=== PATIENT | female | born 1980 | race Caucasian/White ===

== ENCOUNTER 2023-07-27 11:12 | Outpatient (OUT) | payer BC, SELFPAY ==
--- NOTE | 2023-07-27 11:21 | MM_ITS ---
Patient: LUIS MANUEL YO Exam Date: 07/27/2023 : 1980 Gender:F Ordering : DR Rufus Etienne . Admission #: [id number] Family : DR. DEMI ABDI M.D. Order #: [id number] CLICK HERE TO VIEW EXAM RADIOLOGY REPORT PROCEDURE: MM TOMOSYNTHESIS SCREENING BI COMPARISON: MG MAMM SCREEN 3D CEDRICK CAD, 07/21/2022. INDICATIONS: Screening Calculator Name NCI Breast Cancer Risk Assessment Tool 5 Year Breast Cancer Risk 0.60% Lifetime Breast Cancer Risk 10.10% Personal Breast Cancer No Personal Ovarian Cancer No Treatments None Family Cancers Grandmother-maternal with breast cancer at age ~65; Aunt-paternal with breast cancer at age ~55; Mother with ovarian cancer at age 56; Grandmother-maternal with cervical cancer at age ~40; Grandfather-paternal with lung cancer at age ~72. LOCATION: [facility] BREAST COMPOSITION: Scattered areas fibroglandular density. FINDINGS: DIAGNOSTIC CATEGORY 2--BENIGN FINDING: RIGHT BREAST: No significant suspicious finding. Scattered benign-appearing lymph nodes are present. No significant change has occurred. LEFT BREAST: No significant suspicious finding. Scattered benign-appearing lymph nodes are present. No significant change has occurred. RECOMMENDATIONS: ROUTINE MAMMOGRAM AND CLINICAL EVALUATION IN 12 MONTHS. PLEASE NOTE: A NORMAL MAMMOGRAM DOES NOT EXCLUDE THE POSSIBILITY OF BREAST CANCER. A CLINICALLY SUSPICIOUS PALPABLE LUMP SHOULD BE BIOPSIED. Dictated by: Cecil Pike M.D. on 07/28/2023 at 11:18 Approved by: Cecil Pike M.D. on 07/28/2023 at 11:25
== END 2023-07-27 11:13 | disposition home or self-care (01) ==
LOC: MAMMO 11:17
PROVIDERS: PCP Student in an Organized Health Care Education/Training Program; Visit Provider Obstetrics & Gynecology
DX: Z12.31 Encounter for screening mammogram for malignant neoplasm of breast (principal); Z80.3 Family history of malignant neoplasm of breast; Z80.1 Family history of malignant neoplasm of trachea, bronchus and lung; Z80.41 Family history of malignant neoplasm of ovary; Z80.49 Family history of malignant neoplasm of other genital organs
CPT/HCPCS: 77063; 77067

== ENCOUNTER 2024-07-17 19:47 | Outpatient (REF) | payer BC, SELFPAY | END 2024-07-17 19:48 | disposition home or self-care (01) | LOC: LAB 19:47 | PROVIDERS: PCP Student in an Organized Health Care Education/Training Program; Visit Provider Physician Assistant | DX: Z01.419 Encounter for gynecological examination (general) (routine) without abnormal findings (principal) | CPT/HCPCS: 87624; 88175 ==

== ENCOUNTER 2024-07-23 13:32 | Outpatient (RCR) | payer BC, SELFPAY | END 2024-08-05 23:59 | disposition home or self-care (01) | LOC: HEMC 13:32 | PROVIDERS: PCP Student in an Organized Health Care Education/Training Program; Visit Provider Internal Medicine Hematology & Oncology | DX: Z15.89 Genetic susceptibility to other disease (principal); Z15.09 Genetic susceptibility to other malignant neoplasm; Z80.3 Family history of malignant neoplasm of breast; Z80.41 Family history of malignant neoplasm of ovary | CPT/HCPCS: 36415; G0463 ==

== ENCOUNTER 2024-07-31 07:50 | Outpatient (OUT) | payer BC, SELFPAY ==
--- OUTSIDE RECORDS SUMMARY | 2024-07-31 07:54 | XMS_ITS | CCD ---
Author Organization [facility] Inform ion Partnership [facility] Care Team Providers Care Billing Collections Specialist Name Role Phone MAXIMO LEBLANC ([facility]) Referring Unavailab GEN Mason Attending Unavailable GEN CASTILLO Referring Unavailable Madyson Hinkle Primary Care Physician Sonali BACH Unavailable Stacy Arias Unavailable Unavailable Kalpana Garcia Unavailable Unavailable [facility] Primary Care Unavailable MAURISIO PHELPS Attending Unavailable MAURISIO PHELPS Consulting Unavailable MAURISIO PHELPS Admitting Unavailable KARASIK ., DR GOLDBEGR Consulting Unavailabl e KARASIK ., DR GOLDBERG Admitting Unavailabl e [facility] Primary Care Unavailable KARASIK ., DR GOLDBERG Attending Unavailabl e HOY ., DR HALE Attending Unavailable HOY ., DR HALE Consulting Unavailable HOY ., DR HAEL Admitting Unavailable [facility] Primary Care Unavailable YAROSH .JORGE Consulting Unavailable HAY ., DR MONTALVO Attending Unavailable HAY ., DR MONTALVO Admitting Unavailable [facility] Primary Care Unavailable YOANNA CASTRO Consulting Unavailable WILLIAMS ., AYAAN Admitting Unavailable WILLIAMS ., AYAAN Attending Unavailable WILLIAMS .AYAAN Consulting Unavailable KOBY KRAMER Consulting Unavailable KARASIK ., DR GOLDBERG Consulting Unavailabl e KARASIK ., DR GOLDBERG Admitting Unavailabl e [facility] Primary Care Unavailable KARASIK ., DR GOLDBERG Attending Unavailparker CASTRO, DR YOANNA Mcdaniel Consulting Unavailable Madyson Hinkle MD Primary Care Provider Madyson Hinkle MD Unavailable DO Ashlyn Cheney Primary Care Provider MD Dmitri Lilly Attending Provider Ashlyn Cheney Primary Care Unavailable Dmitri Lilly Attending Unavailable Dmitri Lilly Admitting Unavailable COCO ADAMS Attending Unavailable ARIN, MADYSON Landrum Attending Unavailable GAB SOSA Attending Unavailab COCO Orozco Attending Unavailable ARIN, MADYSON M Attending Unavailable ARIN, MADYSON M Attending Unavailable GRETCHENREX EWING Attending Unavailable Arin, Madyson M Admitting Unavailable Arin, Madyson M Attending Unavailable Arin, Madyson M Referring Unavailable America Santana Attending Unavailable Allergies Allergy Classification Reported Allergen(s) Allergy Type Date of Onset Reaction(s) Facility (7 sources) Aspirin; Translations: [ASPIRIN] Drug Allergy 2 Hives [facility] Repository (3 sources) Bee; Translations: [bee] Propensity to adverse reactions to substance [facility] (3 sources) [place]; Translations: [strawberries] Propensity to adverse reactions to substance [facility] (3 sources) Honey bee venom Propensity to adverse reactions 0 [facility] (3 sources) [place] Allergy to substance [address] [facility] (1 source) Penicillins; Translations: [penicillins] Propensity to adverse reactions (disorder) [facility] Repository Medications Current Medications Medication Drug Class(es) Dates Sig (Normalized) Sig (Original) Tylenol (2 sources) Start: 10-21-2019 Tylenol Refills(s) 0 Start Date: 10/21/19 Status: Ordered amoxicillin 875 mg / clavulanate 125 mg oral tablet (1 source) Penicillin-class Antibacterial Start: 12-30-2023 End: 01-09-2024 take 1 tablet by mouth every twelve hours Augmentin 875 mg oral tablet = 1 tab(s), Oral, q12hr, X 10 day(s), # 20 tab(s), Refills(s) 0, Pharmacy: [facility]/pharmacy #[id number], 168, cm, 12/30/23 10:51:00 EST, Height/Length Dosing, 84.9, kg, 12/30/23 10:51:00 EST, Weight Dosing Start Date: 12/30/23 Stop Date: 01/09/24 Status: Ordered benzonatate 200 mg oral capsule (1 source) Non-narcotic Antitussive Start: 12-30-2023 End: 01-09-2024 take 1 capsule by mouth three times daily benzonatate 200 mg oral capsule 200 mg = 1 cap(s), Oral, TID, X 10 day(s), # 30 cap(s), Refills(s) 0, Pharmacy: [facility]/pharmacy #[id number], 168, cm, 12/30/23 10:51:00 EST, Height/Length Dosing, 84.9, kg, 12/30/23 10:51:00 EST, Weight Dosing Start Date: 12/30/23 Stop Date: 01/09/24 Status: Ordered benzoyl peroxide 0.05 mg/mg topical gel (4 sources) Start: 12-30-2023 benzoyl peroxide Top 5% Gel 60 gram Refill(s) 0 Start Date: 12/30/23 Status: Ordered Start: 11-29-2023 benzoyl peroxi de 5 % gel Indications: Acne vulgaris Apply to face once a day, in the morning, 30 day supply 60 g 11 11/29/2023 Active busPIRone hydrochloride 15 mg oral tablet (3 sources) busPIRone (Buspa r) 15 MG tablet Take 15 mg by mouth. 0 Active Classic (1 source) Start: 015 take 1 tablet by mouth once daily Classic 1 tab(s), Oral, Daily, Refill(s) 0 Start Date: 04/25/15 Status: Ordered dextromethorphan hydrobromide 3 mg/ml / promethazine hydrochloride 1.25 mg/ml oral solution (1 source) Phenothiazine, Uncompetitive C-waotht-M-aspartate Receptor Antagonist, Sigma-1 Agonist Start: 024 take 5 mL by mouth every six hours for cough dextromethorphan-prom ethazine 15 mg-6.25 mg/5 mL Oral Syrup 5 mL 5 mL, Oral, q6hr for cough, 240 mL, Refill(s) 0, [facility]/pharmacy #[id number], 168, cm, 12/30/23 10:51:00 EST, Height/Length Dosing, 84.9, kg, 12/30/23 10:51:00 EST, Weight Dosing Start Date: 12/30/23 Status: Ordered ibuprofen 600 mg oral tablet (2 sources) Nonsteroidal Anti-inflammatory Drug Start: 020 take 1 tablet by mouth every six hours as needed for pain ibuprofen 600 mg Tab 600 mg = 1 tab(s), Oral, q6hr, PRN Pain - Mild, # 30 tab(s), Refills(s) 0, Pharmacy: [facility]/pharmacy #[id number], 165, cm, 05/13/20 16:21:00 EDT, Height/Length Measured, 90.9, kg, 05/13/20 16:21:00 EDT, Weight Measured Start Date: 05/15/20 Status: Ordered levonorgestrel 0.638756 mg/hr intrauterine system (6 sources) Progestin, Progestin-containing Intrauterine Device End: 024 Levonorgestrel (Mirena, 52 MG,) 20 MCG/DAY intrauterine device Mirena 0 12/20/2023 Discontinued levothyroxine sodium 0.112 mg oral tablet (5 sources) l-Thyroxine Start: 023 take 1 tablet by mouth once daily in the morning levothyroxine (Synthroid, Levoxyl) 112 MCG tablet Indications: Acquired hypothyroidism (CMS/HCC) TAKE 1 TABLET BY MOUTH EVERY DAY IN THE MORNING ON AN EMPTY STOMACH 90 tablet 3 09/01/2023 Active Start: 05-15-2020 take 1 tablet by nadir th once daily levothyroxine 125 mcg (0.125 mg) Tab 125 microgram = 1 tab(s), Oral, Daily, # 30 tab(s), Refills(s) 2, Pharmacy: [facility]/pharmacy #[id number], 165, cm, 05/13/20 16:21:00 EDT, Height/Length Measured, 90.9, kg, 05/13/20 16:21:00 EDT, Weight Measured Start Date: 05/15/20 Status: Ordered predniSONE 20 mg oral tablet (1 source) Start: 12-30-2023 take 2 tablets by mouth once daily in the morning, then take 1 tablet by mouth once daily in the morning predniSONE 20 mg Tab See Instructions, 2 po QAM x5 days, then 1 po QAM x5 days, # 15 tab(s), Refills(s) 0, Pharmacy: [facility]/pharmacy #[id number], 168, cm, 12/30/23 10:51:00 EST, Height/Length Dosing, 84.9, kg, 12/30/23 10:51:00 EST, Weight Dosing Start Date: 12/30/23 Status: Ordered spironolactone 100 mg oral tablet (4 sources) Aldosterone Antagonist Start: 12-30-2023 spironolactone 100 mg Tab Refills(s) 0 Start Date: 12/30/23 Status: Ordered Start: 11-29-2023 take 1 tablet by nadir once daily spironolactone (Aldactone) 100 MG tablet Indications: Acne vulgaris Take 1 tablet, by mouth, once daily, 30 days 30 tablet 3 11/29/2023 Active 24 hr venlafaxine 37.5 mg extended release oral capsule (5 sources) Serotonin and Norepinephrine Reuptake Inhibitor Start: 07-31-2023 End: 07-30-2024 take 1 capsule by mouth every twenty-four hours in the morning venlafaxine XR (Effexor XR) 37.5 MG 24 hr capsule Indications: Anxiety Take 1 capsule (37.5 mg) by mouth in the morning. Do not crush or chew. . 90 capsule 3 07/31/2023 07/30/2024 Active Start: 05-15-2020 take 1 capsule by mo [facility] once daily venlafaxine 75 mg Cap-ER 75 mg = 1 cap(s), Oral, Daily, # 30 cap(s), Refills(s) 1, Pharmacy: [facility]/pharmacy #[id number], 165, cm, 05/13/20 16:21:00 EDT, Height/Length Measured, 90.9, kg, 05/13/20 16:21:00 EDT, Weight Measured Start Date: 05/15/20 Status: Ordered Problems Active Problems Problem Classification Problem Date Documented Date Episodic/Chronic Anxiety disorders (5 sources) Anxiety; Translations: [Anxiety disorder, unspecified] Onset: 04-19-2023 04-25-2015 Chronic Deficiency and other anemia (2 sources) Anemia 05-13-2020 Episodic Esophageal disorders (5 sources) Gastroesophageal reflux disease; Translations: [Gastro-esophageal reflux disease without esophagitis] Onset: 04-19-2023 11-18-2019 Chronic Headache; including migraine (4 sources) Migraine 07-18-2019 Chronic Lymphadenitis (2 sources) Lymphadenopathy; Translations: [Generalized enlarged lymph nodes] 12-20-2023 Episodic Malaise and fatigue (2 sources) Fatigue; Translations: [Chronic fatigue, unspecified] 12-20-2023 Chronic Malposition; malpresentation (2 sources) Complete breech presentation 05-11-2020 Episodic Mood disorders (10 sources) Depression; Translations: [Depressive disorder] Onset: 04-19-2023 04-25-2015 Chronic Other connective tissue disease (1 source) Myalgia, unspecified site; Translations: [Myalgia, unspecified site] Onset: 01-22-2024 Episodic Other nutritional; endocrine; and metabolic disorders (2 sources) Body mass index 30+ - obesity; Translations: [Body mass index (BMI) 31.0-31.9, adult] 12-20-2023 Chronic Other nutritional; endocrine; and metabolic disorders (3 sources) Obese class I; Translations: [Obesity, unspecified] Onset: 12-30-2023 12-20-2023 Chronic Other screening for suspected conditions (not mental disorders or infectious disease) (10 sources) Bacteria present; Translations: [Encounter for screening for malignant neoplasm of cervix] Onset: 07-21-2022 05-11-2020 Episodic Other skin disorders (2 sources) Eruption; Translations: [Rash and other nonspecific skin eruption] 12-20-2023 Episodic Other upper respiratory disease (3 sources) Seasonal allergy; Translations: [Other seasonal allergic rhinitis] Onset: 04-19-2023 04-19-2023 Chronic Other upper respiratory infections (1 source) Chronic maxillary sinusitis; Translations: [Chronic maxillary sinusitis] Onset: 12-30-2023 Chronic Other upper respiratory infections (1 source) Acute upper respiratory infection; Translations: [Acute upper respiratory infection, unspecified] Onset: 12-30-2023 Episodic Thyroid disorders (7 sources) Hypothyroidism; Translations: [Acquired hypothyroidism] Onset: 12-29-2011 10-21-2019 Chronic Unclassified (1 source) Age mother conceived over 35( Confirmed ) 05-13-2020 Unclassified (2 sources) Streptococcus agalactiae (organism) 05-13-2020 Unclassified (3 sources) CONTACT W/AND (SUSP) EXPOS COVID-19; Translations: [CONTACT W/AND (SUSP) EXPOS COVID-19] Onset: 04-11-2022 Unclassified (1 source) Age mother conceived over 35 05-13-2020 Viral infection (5 sources) Singh-Hartley virus disease; Translations: [Infectious mononucleosis, unspecified without complication] Onset: 04-19-2023 04-19-2023 Episodic Viral infection (1 source) COVID-19; Translations: [COVID-19] Onset: 03-15-2023 Past or Other Problems Problem Classification Problem Date Documented Da te Episodic/Chronic Appendicitis and other appendiceal conditions (3 sources) Chronic appendicitis; Translations: [Other appendicitis] Onset: 04-19-2023 04-19-2023 Episodic Attention-deficit, conduct, and disruptive behavior disorders (3 sources) Obsessive behavior; Translations: [Obsessive-compulsi ve behavior] Onset: 04-19-2023 04-19-2023 Episodic E Codes: Natural/environment (1 source) Overexertion from prolonged static or awkward postures, initial encounter; Translations: [OVEREXERT PROLNG STAT/AWK PST INIT] Onset: 05-06-2022 Episodic Nausea and vomiting (4 sources) Nausea with vomiting, unspecified; Translations: [NAUSEA WITH VOMITING UNSPECIFIED] Onset: 04-08-2022 Episodic Other aftercare (1 source) Other mcfp (current) drug therapy; Translations: [OTH INDUSTRIAL ECONOMIST CURRENT DRUG THERAPY] Onset: 04-11-2022 Episodic Other gastrointestinal disorders (3 sources) Splenomegaly; Translations: [Splenomegaly, not elsewhere classified] Onset: 04-19-2023 04-19-2023 Episodic Other lower respiratory disease (1 source) Other nonspecific abnormal finding of lung field; Translations: [Other nonspecific abnormal finding of lung field] Onset: 12-05-2017 Episodic Other lower respiratory disease (3 sources) Multiple nodules of lung; Translations: [Other nonspecific abnormal finding of lung field] Onset: 12-05-2017 04-19-2023 Episodic Other non-traumatic joint disorders (4 sources) Pain in left ankle and joints of left foot; Translations: [PAIN IN LEFT ANKLE] Onset: 05-05-2022 Episodic Other skin disorders (3 sources) Acne; Translations: [Other acne] Onset: 04-19-2023 04-19-2023 Episodic Residual codes; unclassified (1 source) Family history of malignant neoplasm of breast; Translations: [FAMILY HX MALIG NEOPLASM OF BREAST] Onset: 07-25-2022 Episodic Residual codes; unclassified (1 source) Family history of malignant neoplasm of ovary; Translations: [FAM HX MALIGNANT NEOPLASM OVARY] Onset: 07-25-2022 Episodic Residual codes; unclassified (1 source) Family history of malignant neoplasm of trachea, bronchus and lung; Translations: [FAM HX MALIG NEOPLSM TRACH BRON LNG] Onset: 07-25-2022 Episodic Residual codes; unclassified (1 source) Family history of malignant neoplasm of other organs or systems; Translations: [FAM HX MALIG NEOPLASM OTH ORGN/SYS] Onset: 07-25-2022 Episodic Screening and history of mental health and substance abuse codes (1 source) Personal history of nicotine dependence; Translations: [PERSONAL HISTORY OF NICOTINE DEPEND] Onset: 05-06-2022 Episodic Sprains and strains (1 source) Sprain of unspecified ligament of left ankle, initial encounter; Translations: [SPRAIN UNS LIGAMENT LT ANKLE INIT] Onset: 05-06-2022 Episodic Unclassified (6 sources) Onset: 01-30-2007 Resolved: 05-13-2020 09-30-2015 Unclassified (1 source) CONTACT W/AND (SUSP) EXPOS COVID-19; Translations: [CONTACT W/AND (SUSP) EXPOS COVID-19] Onset: 03-09-2023 Results Test Name Value Interpretation Reference Range Facility US Extremity Non-Vascular Li mited Lefton 2024 US Extremity Non-Vascular Limited Left Exam Date/Time: 07/19/2024 16:23 EDT Reason for Exam: R19.09 Report IMPRESSION: APPROXIMATELY 2.5 CM PROBABLE SUPERFICIAL LEFT GROIN LIPOMA. EXAM: US Extremity Non-Vascular Limited Left DATE: 07/19/2024 4:09 PM CLINICAL HISTORY: R19.09. COMPARISON: CT abdomen and pelvis 10/22/2017. TECHNIQUE: Directed ultrasound of the left groin was performed and a palpable area of concern, with a regional survey. FINDINGS: An ovoid well defined wider than tall area just deep to the skin surface essentially isoechoic to subcutaneous fat measuring approximately 2.5 x 1.7 x 0.7 cm is probably a lipoma or possibly area of mild fat necrosis. There is no organized fluid collection, significant inflammation, lymphadenopathy, discrete hernia or other findings of concern identified. Ordering Provider: Madyson Hinkle FINAL REPORT Dictated: 2024 7:45 am Benjamin Ordonez MD Signed (Electronic Signature): 2024 7:45 am Signed by: Benjamin Ordonez MD Transcribed by: SAMMIE Technologist: DALIA Elliott [facility] HARINDER Antinuclear Antibodieson 01-22-2024 Antinuclear Abs, IFA Positive Critically abnormal . [facility] Comment on above: Result Comment: Nega tive <1:80 Borderline 1:80 Positive >1:80 Performed By: #### C 3, HARINDER, C4, CH50 #### [facility] , #### CK, ADDONUAPLUS #### [facility] [address] [place] [address] Note 1 Normal . [facility] Comment on above: Result Comment: Pat rao Potential Disease Association Homogeneous Systemic Lupus Erythematosus, Drug Induced Systemic Lupus Erythematosus, Chronic Autoimmune hepatitis, Juvenile Idiopathic Arthritis Speckled Sjogren Syndrome, Systemic Lupus Erythematosus, Subacute Cutaneous Lupus, Lupus, Congenital Heart Block, Mixed Connective Tissue Disease, Scleroderma-diffuse, Scleroderma-Autoimmune Myositis Overlap Syndrome, Systemic Lupus Rnvdjfxdncirc-Txgoggtyqww-Ffyoxcjofq Myositis Overlap Syndrome, Systemic Autoimmune Rheumatic Disease, Undifferentiated Connective Tissue Disease Nucleolar Systemic Sclerosis, Scleroderma-Autoimmune Myositis Overlap Syndrome, Sjogren Syndrome, Raynaud phenomenon, Pulmonary Arterial Hypertension, Systemic Autoimmune Rheumatic Disease, Cancer Centromere Scleroderma-CREST, Limited Cutaneous SSc, Raynaud's Phenomenon, Primary Biliary Cholangitis Nuclear Dot Primary Biliary Cholangitis Nuclear Primary Biliary Cholangitis, Autoimmune Membrane Hepatitis/Liver disease, Systemic Autoimmune Rheumatic Disease, Autoimmune Cytopenias, Linear Scleroderma, Antiphospholipid Syndrome Performed at: [facility] [id number] Sustainability Specialist: Tyler Linton PhD, Phone: [phone] Performed By: #### C 3, HARINDER, C4, CH50 #### [facility] , #### CK, ADDONUAPLUS #### [address] Speckled Pattern 1:1280 High . [facility] Comment on above: Result Comment: Dens e Fine Speckled pattern is noted. This pattern suggests the presence of DFS70 antibody which has a low prevalence in systemic autoimmune rheumatic diseases. ICAP nomenclature: AC-2,4,5,29 Performed By: #### C 3, HARINDER, C4, CH50 #### [facility] , #### CK, ADDONUAPLUS #### [facility] [address] [place] [address] Automated erythrocytes count in urine sediment (number/area)Ordered By: Dmitri Lilly on 01-22-2024 RBC Auto (Urine sed) [#/Area] 1-2 [HPF] 0-4 [facility] Automated leukocytes count i n urine sediment (number/area)Ordered By: Dmitri Lilly on 01-22-2024 WBC Auto (Urine sed) [#/Area] 3-4 [HPF] 0-4 [facility] Bilirubin Test strip Ql (U)O rdered By: Dmitri Lilly on 01-22-2024 Bilirubin Ql (U) Negative Negative [facility] Color Auto (U)Ordered By: Asya Lilly on 01-22-2024 Color (U) Yellow Yellow [facility] Complement C3on 01-22-2024 Complement C3 163 mg/dL Normal 82-167 [facility] Comment on above: Result Comment: Perf ormed at: - [facility] [place] [address] Sustainability Specialist: Tyler Linton PhD, Phone: [phone] Performed By: #### C 3, HARINDER, C4, CH50 #### [facility] , #### CK, ADDONUAPLUS #### [place] [address] [place] Complement C4on 01-22-2024 Complement C4 35 mg/dL Normal 12-38 [facility] Comment on above: Result Comment: PERF ORMED BY: [place] [id number] PATHOLOGIST UNIFORM ROOM ATTENDANT ENID BREWER M.D. Performed By: #### C 3, HARINDER, C4, CH50 #### [facility] , #### CK, ADDONUAPLUS #### [place] [address] [place] Complement Total (CH50)on Complement Total (CH50) >60 Normal >41 [facility] Comment on above: Result Comment: Age Male Female 1 - 30 days Not Estab. Not Estab. 31 days - 6 months >32 >20 7 months - 17 years >39 >39 >17 years >41 >41 NOTE: The adult ( >17 years ) reference interval range is used to flag abnormals on this report. If the patient is 17 years old or younger, use the table above to determine out of range values. Performed at: [facility] [address] [id number] Sustainability Specialist: Tyler Linton PhD, Phone: [phone] PERFORMED BY: [place] [id number] PATHOLOGIST UNIFORM ROOM ATTENDANT ENID BREWER M.D. Performed By: #### C 3, HARINDER, C4, CH50 #### [facility] , #### CK, ADDONUAPLUS #### [address] Creatine Kinaseon 01-22-2024 CK [Catalytic activity/Vol] 45 U/L Normal [facility] Comment on above: Result Comment: PERF ORMED BY: [place] [id number] PATHOLOGIST UNIFORM ROOM ATTENDANT ENID BREWER M.D. Performed By: #### C 3, HARINDER, C4, CH50 #### [facility] , #### CK, ADDONUAPLUS #### [address] Creatine kinase [Enzymatic a ctivity/volume] in Serum or PlasmaOrdered By: Dmitri Lilly on 01-22-2024 CK [Catalytic activity/Vol] 45 U/L [facility] Dipstick and Microscopicon 0 01-22-2024 Appearance (U) Clear Normal Clear [facility] Comment on above: Order Comment: Name Collection Type:: Clean-Voided Midstream Performed By: #### C 3, HARINDER, C4, CH50 #### [facility] , #### CK, ADDONUAPLUS #### [facility] [address] [place] [address] [place] Bacteria,Urine Rare High None Seen [facility] Comment on above: Order Comment: Name Collection Type:: Clean-Voided Midstream Performed By: #### C 3, HARINDER, C4, CH50 #### [facility] , #### CK, ADDONUAPLUS #### [facility] [address] [place] [address] Bilirubin,Urine Negative Normal Negative [facility] Comment on above: Order Comment: Name Collection Type:: Clean-Voided Midstream Performed By: #### C 3, HARINDER, C4, CH50 #### [facility] , #### CK, ADDONUAPLUS #### [facility] [address] [place] [address] Color (U) Yellow Normal Yellow [facility] Comment on above: Order Comment: Name Collection Type:: Clean-Voided Midstream Performed By: #### C 3, HARINDER, C4, CH50 #### [facility] , #### CK, ADDONUAPLUS #### [facility] [address] [place] [address] Glucose Ql (U) Normal Normal Normal [facility] Comment on above: Order Comment: Name Collection Type:: Clean-Voided Midstream Performed By: #### C 3, HARINDER, C4, CH50 #### [facility] , #### CK, ADDONUAPLUS #### [facility] [address] [place] [address] [place] Hyaline Casts,Urine None Seen Normal 0-8 [facility] Comment on above: Order Comment: Name Collection Type:: Clean-Voided Midstream Result Comment: PERF ORMED BY: [place] [id number] PATHOLOGIST UNIFORM ROOM ATTENDANT ENID BREWER M.D. Performed By: #### C 3, HARINDER, C4, CH50 #### [facility] , #### CK, ADDONUAPLUS #### [address] Ketones Ql (U) Negative Normal Negative [facility] Comment on above: Order Comment: Name Collection Type:: Clean-Voided Midstream Performed By: #### C 3, HARINDER, C4, CH50 #### [facility] , #### CK, ADDONUAPLUS #### [address] Leukocyte esterase Test strip Ql (U) 2+ High Negative [facility] Comment on above: Order Comment: Name Collection Type:: Clean-Voided Midstream Performed By: #### C 3, HARINDER, C4, CH50 #### [facility] , #### CK, ADDONUAPLUS #### [address] Nitrite,Urine Negative Normal Negative [facility] Comment on above: Order Comment: Name Collection Type:: Clean-Voided Midstream Performed By: #### C 3, HARINDER, C4, CH50 #### [facility] , #### CK, ADDONUAPLUS #### [address] Occult Blood,Urine Negative Normal Negative [facility] Comment on above: Order Comment: Name Collection Type:: Clean-Voided Midstream Performed By: #### C 3, HARINDER, C4, CH50 #### [facility] , #### CK, ADDONUAPLUS #### [address] pH (U) 6.5 [pH] Normal 5.0-9.0 [facility] Comment on above: Order Comment: Name Collection Type:: Clean-Voided Midstream Performed By: #### C 3, HARINDER, C4, CH50 #### [facility] , #### CK, ADDONUAPLUS #### [address] Protein,Urine Negative Normal Negative [facility] Comment on above: Order Comment: Name Collection Type:: Clean-Voided Midstream Performed By: #### C 3, HARINDER, C4, CH50 #### [facility] , #### CK, ADDONUAPLUS #### [address] [address] RBC,Urine 1-2 Normal 0-4 [facility] Comment on above: Order Comment: Name Collection Type:: Clean-Voided Midstream Performed By: #### C 3, HARINDER, C4, CH50 #### [facility] , #### CK, ADDONUAPLUS #### [address] Specificy [place],Urine 1.008 Normal 1.001-1.030 [facility] Comment on above: Order Comment: Name Collection Type:: Clean-Voided Midstream Performed By: #### C 3, HARINDER, C4, CH50 #### [facility] , #### CK, ADDONUAPLUS #### [address] Squamous Epithelial Cell,Urine 3-4 High 0-2 [facility] Comment on above: Order Comment: Name Collection Type:: Clean-Voided Midstream Performed By: #### C 3, HARINDER, C4, CH50 #### [facility] , #### CK, ADDONUAPLUS #### [address] Urobilinogen,Urine Normal Normal Normal [facility] Comment on above: Order Comment: Name Collection Type:: Clean-Voided Midstream Performed By: #### C 3, HARINDER, C4, CH50 #### [facility] , #### CK, ADDONUAPLUS #### [place] [address] [place] WBC,Urine 3-4 Normal 0-4 [facility] Comment on above: Order Comment: Name Collection Type:: Clean-Voided Midstream Performed By: #### C 3, HARINDER, C4, CH50 #### [facility] , #### CK, ADDONUAPLUS #### [address] Ketones Auto test strip (U) [Mass/Vol]Ordered By: Dmitri Lilly on 01-22-2024 Ketones (U) [Mass/Vol] Negative Negative [facility] Laboratory - UrinalysisOrder ed By: Dmitri Lilly on 01-22-2024 Hyaline casts LM Ql (Urine sed) None seen [LPF] 0-8 [facility] Nitrite Test strip Ql (U)Ord ered By: Dmitri Lilly on 01-22-2024 Nitrite Ql (U) Negative Negative [facility] Protein Auto test strip (U) [Mass/Vol]Ordered By: Dmitri Lilly on 01-22-2024 Protein (U) [Mass/Vol] Negative Negative [facility] Specific gravity Auto test s trip (U) [Rel density]Ordered By: Dmitri Lilly on 01-22-2024 Specific gravity (U) [Rel density] 1.008 1.001-1.030 [facility] Squamous epithelial cells de tection in urine sediment by light microscopyOrdered By: Dmitri Lilly on 01-22-2024 Epithelial cells.squamous LM Ql (Urine sed) 3-4 [HPF] 0-2 [facility] Urine bacteria detection by automated methodOrdered By: Dmitri Lilly on 01-22-2024 Bacteria Auto Ql (U) Rare None Seen [facility] Urine clarity by refractomet ry automatedOrdered By: Dmitri Lilly on 01-22-2024 Clarity Refractometry automated (U) Clear Clear [facility] Urine glucose measurement by automated test strip (mass/volume)Ordered By: Dmitri Lilly on 01-22-2024 Glucose Auto test strip (U) [Mass/Vol] Normal mg/dL Normal [facility] Urine hemoglobin detection b y automated test stripOrdered By: Dmitri Lilly on 01-22-2024 Hemoglobin Auto test strip Ql (U) Negative Negative [facility] Urine leukocyte esterase det ection by automated test stripOrdered By: Dmitri Lilly on 01-22-2024 Leukocyte esterase Auto test strip Ql (U) 2+ Negative [facility] Urobilinogen Auto test strip (U) [Mass/Vol]Ordered By: Dmitri Lilly on 01-22-2024 Urobilinogen (U) [Mass/Vol] Normal mg/dL Normal [facility] pH Auto test strip (U)Ordere d By: Dmitri Lilly on 01-22-2024 pH (U) 6.5 [pH] 5.0-9.0 [facility] Provider Letteron 01-06-2024 Provider Letter January 06, 2024 SANDI [place] [address] : 1980 To Whom It May Concern, Please excuse above patient from work. Date of Illness: From: _12/30/2023 To: _12/31/2023 May Return to Work On:01/01/2024 Sincerely, [facility] [address] [place] [address], [place] [address] 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 Her focal complaint today is pain over the right maxillary sinus and right frontal sinus. She is tender to palpation over those areas and states that her symptoms are worsening. She has been running low-grade fevers intermittently over the past 10 days. She complains of the dry cough. She complains of a headache but then points to the area of the right maxillary and right frontal sinus. She has no shortness of breath or tightness with breathing. She has no GI symptoms with her illness. Review of Systems PHQ Score Initial Depression Screen Score: 0 SCORE Constitutional: Complains of intermittent low-grade fevers, severe fatigue Eyes: Denies visual change or eye discharge Head/Ears/Nose/Throa t: See HPI above Respiratory: Denies shortness of breath. Does complain of a dry cough Cardiovascular: Denies chest pain GI/ : Denies abdominal pain, n/v. Musculoskeletal: Denies Joint pain, Denies muscle pain Neurologic: Denies any generalized headache, Denies focal neuro symptoms Physical Exam Vitals & Measurements T: 36.8 ?C(Oral) HR: 99(Peripheral) BP: 116/78 SpO2: 97% HT: 66 in HT: 168 cm WT: 84.9 kg WT: 186.78 lb BMI: 30.08 Primary assessment: Airway patent. Respirations unlabored. Normal respiratory effort Constitutional: Vital signs reviewed. Patient appears ill but does not appear toxic.. No distress. Psychiatric: Mental status appropriate. Normal affect Skin: Warm and dry. HENT: Normal TMs. Posterior pharynx clear. Negative cervical lymphadenopathy. She has significant tenderness to palpation over the right maxillary sinus and percussion over the right frontal sinus. She withdraws due to the discomfort. Thorax/ Respiratory: Respiratory effort non-labored. BBS clear ant/post. No wheezes, rales or rhonchi. Musculoskeletal: Neck supple Neurologic: Alert and oriented Assessment/Plan 1. Right maxillary sinusitis (J32.0: Chronic maxillary sinusitis) Ordered: amoxicillin-clavulan ate, = 1 tab(s), Oral, q12hr, X 10 day(s), # 20 tab(s), Refills(s) 0, Pharmacy: [facility]/pharmacy #[id number], 168, cm, 12/30/23 10:51:00 EST, Height/Length Dosing, 84.9, kg, 12/30/23 10:51:00 EST, Weight Dosing benzonatate, 200 mg = 1 cap(s), Oral, TID, X 10 day(s), # 30 cap(s), Refills(s) 0, Pharmacy: [facility]/pharmacy #[id number], 168, cm, 12/30/23 10:51:00 EST, Height/Length Dosing, 84.9, kg, 12/30/23 10:51:00 EST, Weight Dosing dextromethorphan-pro methazine, 5 mL, Oral, q6hr for cough, 240 mL, Refill(s) 0, [facility]/pharmacy #[id number], 168, cm, 12/30/23 10:51:00 EST, Height/Length Dosing, 84.9, kg, 12/30/23 10:51:00 EST, Weight Dosing predniSONE, See Instructions, 2 po QAM x5 days, then 1 po QAM x5 days, # 15 tab(s), Refills(s) 0, Pharmacy: [facility]/pharmacy #[id number], 168, cm, 12/30/23 10:51:00 EST, Height/Length Dosing, 84.9, kg, 12/30/23 10:51:00 EST, Weight Dosing 2. Viral URI with cough (J06.9: Acute upper respiratory infection, unspecified) Ordered: amoxicillin-clavulan ate, = 1 tab(s), Oral, q12hr, X 10 day(s), # 20 tab(s), Refills(s) 0, [id number] 168, cm, 12/30/23 10:51:00 EST, Height/Length Dosing, 84.9, kg, 12/30/23 10:51:00 EST, Weight Dosing benzonatate, 200 mg = 1 cap(s), Oral, TID, X 10 day(s), # 30 cap(s), Refills(s) 0, Pharmacy: [facility]/pharmacy #[id number], 168, cm, 12/30/23 10:51:00 EST, Height/Length Dosing, 84.9, kg, 12/30/23 10:51:00 EST, Weight Dosing dextromethorphan-pro methazine, 5 mL, Oral, q6hr for cough, 240 mL, Refill(s) 0, [facility]/pharmacy #[id number], 168, cm, 12/30/23 10:51:00 EST, Height/Length Dosing, 84.9, kg, 12/30/23 10:51:00 EST, Weight Dosing predniSONE, See Instructions, 2 po QAM x5 days, then 1 po QAM x5 days, # 15 tab(s), Refills(s) 0, Pharmacy: [facility]/pharmacy #[id number], 168, cm, 12/30/23 10:51:00 EST, Height/Length Dosing, 84.9, kg, 12/30/23 10:51:00 EST, Weight Dosing 3. BMI 30.0-30.9,adult (Z68.30: Body mass index [BMI] 30.0-30.9, adult) Ordered: amoxicillin-clavulan ate, = 1 tab(s), Oral, q12hr, X 10 day(s), # 20 tab(s), Refills(s) 0, [id number] 168, cm, 12/30/23 10:51:00 EST, Height/Length Dosing, 84.9, kg, 12/30/23 10:51:00 EST, Weight Dosing benzonatate, 200 mg = 1 cap(s), Oral, TID, X 10 day(s), # 30 cap(s), Refills(s) 0, [id number], 168, cm, 12/30/23 10:51:00 EST, Height/Length Dosing, 84.9, kg, 12/30/23 10:51:00 EST, Weight Dosing dextromethorphan-pro methazine, 5 mL, Oral, q6hr for cough, 240 mL, Refill(s) 0, [id number] 168, cm, 12/08 (more content not included)... Normal [facility] Comment on above: Result Comment: Elec tronically Signed By: Tiburcio ALANIZ, Sarbjit W.\.br\Date and Time Signed: 12/30/23 11:30 EST Patient Letter FTon 2023 Patient Letter [facility] [address], [place] [address] December 30, 2023 SANDI YO [address] [place] [address] : 1980 Please excuse SANDI YO from work . Date and/or Time of Absence: From: 12/30/23 To: 12/31/23 May return to work on: 01/01/2024 as long as she is free of fevers. Restrictions: None Comments: Please excuse due to an acute illness. Provider Signature: Sarbjit Dey PA-C Physician Tax Attorney [address] [place] [address] [facility] Covid-19 PCR (CVDTBH)on SARS-CoV-2 (COVID-19) RNA LEWIS+probe Ql (Unsp spec) Detected Abnormal NOT DETECTED [facility] Comment on above: Result Comment: This test is not yet approved or cleared by the [place] FDA. When there are no FDA-approved or cleared tests available, and other criteria are met, FDA can make tests available under an emergency access mechanism called an Emergency Use Authorization (EUA). The EUA for this test is supported by the [place] of Health and Human Service's declaration that circumstances exist to justify the emergency use of in vitro diagnostics for the detection and/or diagnosis of the virus that causes COVID-19. This EUA will remain in effect for the duration of the COVID-19 declaration justifying emergency of IVDs, unless it is terminated or revoked by the FDA (after which the test may no longer be used). Performed By: #### C VDTB #### [facility] [address] [place] [address] Dr. Jose Luis Padgett PAP ACOG PANEL 2: 30 to 65on 02-25-2023 . . Normal [facility] Comment on above: Result Comment: Perf ormed at: WB Performed By: #### [id number] #### [facility] [address] [place] [address] Dr. Jose Luis Padgett Age Gdln ACOG Testing -67 Normal [facility] Comment on above: Performed By: #### [id number] #### [facility] [address] [place] [address] Dr. Jose Luis Padgett DIAGNOSIS: Comment Normal [facility] Comment on above: Result Comment: NEGA TIVE FOR INTRAEPITHELIAL LESION OR MALIGNANCY. Performed at: WB Performed By: #### [id number] #### [facility] [address] [place], [place] [id number] Dr. Jose Luis Padgett HPV Aptima Negative Normal Negative [facility] Comment on above: Result Comment: This nucleic acid amplification test detects fourteen high-risk HPV types (16,18,31,33,35,39,45,51,52,56,58,59,66,68) without differentiation. Performed at: =G Performed By: #### [id number] #### [facility] [address] [place] [address] Dr. Jose Luis Padgett HPV Genotype Reflex Comment Normal [facility] Comment on above: Result Comment: Crit eria not met, HPV Genotype not performed. Performed at: WB Performed By: #### [id number] #### [facility] [address] [place] [address] Dr. Jose Luis Padgett Methodology: Comment Normal [facility] Comment on above: Result Comment: This liquid based ThinPrep(R) pap test was screened with the use of an image guided system. Performed at: WB Performed By: #### [id number] #### [facility] [address] [place] [address] Dr. Jose Luis Padgett Note: Comment Normal [facility] Comment on above: Result Comment: The Pap smear is a screening test designed to aid in the detection of premalignant and malignant conditions of the uterine cervix. It is not a diagnostic procedure and should not be used as the sole means of detecting cervical cancer. Both false-positive and false-negative reports do occur. . Performed at: WB Performed By: #### [id number] #### [facility] [address] [place] [address] Dr. Jose Luis Padgett Performed by: Comment Normal [facility] Comment on above: Result Comment: Marilynn Wolf, Is Project Manager (ASCP) Performed at: WB Performed By: #### [id number] #### [facility] [address] [place] [address] Dr. Jose Luis Padgett Specimen adequacy: Comment Normal [facility] Comment on above: Result Comment: Sati sfactory for evaluation. Endocervical and/or squamous metaplastic cells (endocervical component) are present. Performed at: WB Performed By: #### [id number] #### [facility] [address] [address] [address] Jose Luis Padgett CHEMISTRYOrdered By: SYSTEM SYSTEM on 08-05-2022 Albumin [Mass/Vol] 4.0 g/dL Normal 3.3 - 5.0 gm/dL [facility] Albumin/Globulin [Mass ratio] 1.4 {ratio} Normal 1.1 - 2.2 [facility] ALP [Catalytic activity/Vol] 76 [iU]/d Normal 21 - 98 Int._Unit/L [facility] ALT No additional P-5'-P [Catalytic activity/Vol] 24 [iU]/d Normal 6 - 46 Int._Unit/L [facility] Anion gap [Moles/Vol] 13 mmol/L Normal 6 - 16 mEq/L [facility] AST [Catalytic activity/Vol] 18 [iU]/d Normal 5 - 43 Int._Unit/L [facility] Bilirubin [Mass/Vol] 0.6 mg/dL Normal 0.0 - 1 .1 mg/dL [facility] Calcium [Mass/Vol] 9.0 mg/dL Normal 8.9 - 11. 1 mg/dL [facility] Chloride [Moles/Vol] 105 mmol/L Normal 101 - 1 11 mmol/L [facility] Cholesterol [Mass/Vol] 165 mg/dL Normal 120 - 200 mg/dL [facility] Cholesterol in HDL [Mass/Vol] 48 mg/dL Invalid Interpretation Code [facility] Cholesterol in LDL [Mass/Vol] 106 mg/dL Normal <=129mg/dL [facility] Cholesterol in VLDL [Mass/Vol] 16 mg/dL Normal 7 - 40 mg/dL [facility] CO2 [Moles/Vol] 24 mmol/L Normal 21 - 31 mmol/L [facility] Creatinine [Mass/Vol] 0.7 mg/dL Normal 0.5 - 1.3 mg/dL [facility] GFR/1.73 sq M.predicted among blacks MDRD (S/P/Bld) [Vol rate/Area] mL/min/1.73 m2 Normal >=59mL/min/1. 73 m2 [facility] Chem S GFR/1.73 sq M.predicted among non-blacks MDRD (S/P/Bld) [Vol rate/Area] mL/min/1.73 m2 Normal >=59mL/min/1. 73 m2 [facility] Chem S Globulin (S) [Mass/Vol] 2.9 g/dL Normal 1.4 - 4.0 gm/dL [facility] Glucose [Mass/Vol] 95 mg/dL Normal 55 - 199 mg/dL [facility] Potassium [Moles/Vol] 3.8 mmol/L Normal 3.5 - 5.3 mmol/L [facility] Protein [Mass/Vol] 6.9 g/dL Normal 6.0 - 7.8 gm/dL [facility] Sodium [Moles/Vol] 138 mmol/L Normal 135 - 145 mmol/L [facility] Triglyceride [Mass/Vol] 80 mg/dL Normal <=149mg/dL [facility] TSH Qn 0.32 m[IU]/L Low 0.34 - 5.60 mcIU/mL [facility] Urea nitrogen [Mass/Vol] 9 mg/dL Normal 5 - 21 mg/dL [facility] Urea nitrogen/Creatinine [Mass ratio] 13 mg/mg Normal 10 - 20 [facility] CHEMISTRYOrdered By: Latesha Aldana on 08-05-2022 HbA1c (Bld) [Mass fraction] 5.3 % Normal <=5.9% [facility] HEMATOLOGYOrdered By: Bridgette Barrera on 08-05-2022 Erythrocyte distribution width (RBC) [Ratio] 12.5 % Normal 10.9 - 14.2 % [facility] Hematocrit (Bld) [Volume fraction] 40.3 % Normal 34.0 - 46.0 % [facility] Hemoglobin (Bld) [Mass/Vol] 13.5 g/dL Normal 12.0 - 16.0 gm/dL [facility] MCH (RBC) [Entitic mass] 29.5 pg Normal 27.0 - 34.0 pg [facility] MCHC (RBC) [Mass/Vol] 33.6 g/dL Normal 31.4 - 36.0 gm/dL [facility] MCV (RBC) [Entitic vol] 87.8 fL Normal 80.0 - 100.0 fL [facility] Platelet mean volume (Bld) [Entitic vol] 7.6 fL Normal 6.4 - 10.8 fL [facility] HemeAutoSS Platelets (Bld) [#/Vol] 375.0 E9/L Normal 150.0 - 500.0 E9/L [facility]eAutoSS RBC (Bld) [#/Vol] 4.6 E12/L Normal 4.3 - 5.9 E12/L [facility] HemeAutoSS WBC corrected for nucl RBC Auto (Bld) [#/Vol] 6.3 E9/L Normal 4.0 - 11.0 E9/L [facility] HemeAutoSS MG MAMM SCREEN 3D CEDRICK CADon 07-21-2022 MG MAMM SCREEN 3D CEDRICK CAD Patient: SANDI YO Exam Date: 07/21/2022 : 1980 Gender:F Ordering : DR ASHLYN PHIPPS . Admission #: [id number] Family : Order #: [id number] CLICK HERE TO VIEW EXAM RADIOLOGY REPORT PROCEDURE: MAMMOGRAM SCREENING 3D BILATERAL CAD COMPARISON: None. INDICATIONS: Screening mammography Calculator Name NCI Breast Cancer Risk Assessment Tool 5 Year Breast Cancer Risk 0.60% Lifetime Breast Cancer Risk 10.20% Personal Breast Cancer No Personal Ovarian Cancer No Treatments None Family Cancers Grandmother-maternal with breast cancer at age 65; Aunt-paternal with breast cancer at age 55; Mother with ovarian cancer at age 56; Grandmother-maternal with cervical cancer at age 40; Grandfather-paternal with lung cancer at age 72. LOCATION: [facility] BREAST COMPOSITION: Scattered areas fibroglandular density. FINDINGS: DIAGNOSTIC CATEGORY 2--BENIGN FINDING: Scattered benign-appearing nodules are present. Scattered benign-appearing lymph nodes are present. RIGHT BREAST: No significant suspicious finding. LEFT BREAST: No significant suspicious finding. RECOMMENDATIONS: ROUTINE MAMMOGRAM AND CLINICAL EVALUATION IN 12 MONTHS. PLEASE NOTE: A NORMAL MAMMOGRAM DOES NOT EXCLUDE THE POSSIBILITY OF BREAST CANCER. A CLINICALLY SUSPICIOUS PALPABLE LUMP SHOULD BE BIOPSIED. Dictated by: Yoanna Castro MD on 07/21/2022 at 12:22 Approved by: Yoanna Castro MD on 07/21/2022 at 12:23 Normal [facility] XR ANKLE LT MIN 3 Von 2021 XR ANKLE LT MIN 3 V EXAM: XR ANKLE LT MIN 3 V HISTORY: Pain after jumping off of [place] COMPARISON: None. TECHNIQUE: 3 views FINDINGS: No fracture, dislocation, subluxation or osseous lesion. Soft tissues are unremarkable. Joint spaces are normal. Os subtibialis is present, a normal anatomic variant IMPRESSION: Normal x-rays Electronically authenticated by: YOANNA CASTRO Date: 2022-05-05 20:42 Normal [facility] Covid-19 PCR (CVDTB)on SARS-CoV-2 (COVID-19) RNA LEWIS+probe Ql (Unsp spec) Not detected Normal NOT DETECTED [facility] Comment on above: Result Comment: When diagnostic testing is negative, the possibility of a false negative should be considered in the context of a patient's recent exposures and the presence of clinical signs and symptoms consistent with SARS-CoV-2. This test is not yet approved or cleared by the [place] FDA. When there are no FDA-approved or cleared tests available, and other criteria are met, FDA can make tests available under an emergency access mechanism called an Emergency Use Authorization (EUA). The EUA for this test is supported by the [place] of Health and Human Service's declaration that circumstances exist to justify the emergency use of in vitro diagnostics for the detection and/or diagnosis of the virus that causes COVID-19. This EUA will remain in effect for the duration of the COVID-19 declaration justifying emergency of IVDs, unless it is terminated or revoked by the FDA (after which the test may no longer be used). Performed By: #### C VDTB #### [facility] [address] [place] [address] Dr. Jose Luis Padgett ER URINE PROFILEon 2 Bilirubin Ql (U) Negative Normal NEGATIVE [facility] Comment on above: Performed By: #### P REGUREJIR, UMICRO #### [facility] [address] [place] [address] Dr. Jose Luis Padgett Clarity (U) CLEAR Normal CLEAR [facility] Comment on above: Performed By: #### P REGU, ERUR, UMICRO #### [facility] [address] [place] [address] Dr. Jose Luis Padgett Color (U) LT. YELLOW Normal YELLOW [facility] Comment on above: Performed By: #### P REGU, ERUR, UMICRO #### [facility] [address] [address] [address] Jose Luis CHAN A micrscopic examination will be performed if indicated. Normal [facility] Comment on above: Performed By: #### P REGU, ERUR, UMICRO #### [facility] [address] [address] [address] Jose Luis Padgett Glucose Ql (U) Negative Normal NEGATIVE [facility] Comment on above: Performed By: #### P REGU, ERUR, UMICRO #### [facility] [address] [address] [address] Jose Luis Padgett Hemoglobin Ql (U) Negative Normal NEGATIVE [facility] Comment on above: Performed By: #### P REGU, ERUR, UMICRO #### [facility] [address] [address] [address] Jose Luis Padgett Ketones Ql (U) Negative Normal NEGATIVE [facility] Comment on above: Performed By: #### P REGU, ERUR, UMICRO #### [facility] [address] [address] [address] Jose Luis Padgett LEUKOCYTES SMALL Abnormal NEGATIVE [facility] Comment on above: Performed By: #### P REGU, ERUR, UMICRO #### [facility] [address] [address] [address] Jose Luis Padgett Nitrite Ql (U) Negative Normal NEGATIVE [facility] Comment on above: Performed By: #### P REGU, ERUR, UMICRO #### [facility] [address] [address] [address] Jose Luis Padgett pH (U) 6.0 [pH] Normal 5-9 [facility] Comment on above: Performed By: #### P REGU, ERUR, UMICRO #### [facility] [address] [address] [address] Jose Luis Padgett SPEC GRAVITY 1.010 Normal 1.005-<=1.025 [facility] Comment on above: Performed By: #### P REGU, ERUR, UMICRO #### [facility] [address] [place] [address] Dr. Jose Luis Padgett UA PROTEIN Negative Normal NEGATIVE/ TRACE [facility] Comment on above: Performed By: #### P REGU, ERUR, UMICRO #### [facility] [address] [place] [address] Dr. Jose Luis Padgett UR MICRO IND INDICATED Normal [facility] Comment on above: Performed By: #### P REGU, ERUR, UMICRO #### [facility] [address] [place] [address] Dr. Jose Luis Padgett Urobilinogen Qn (U) 0.2 {Solitario'U}/dL Normal 0.2 - 1. 0 [facility] Comment on above: Performed By: #### P REGU, ERUR, UMICRO #### [facility] [address] [place] [address] Dr. Jose Luis Padgett INFLUENZA A AND B AGon 04-08 INFLUANEGH SEE BELOW Normal [facility] Comment on above: Result Comment: Nega tive for Flu A protein angiten. Infection due to Flu A cannot be ruled out. Flu A angiten in the sample may be below the detection limit of the test. Performed By: #### I NFLUAB #### [facility] [facility] [address] [place] [address] Dr. Jose Luis Padgett INFLUBNEGH SEE BELOW Normal [facility] Comment on above: Result Comment: Nega tive for Flu B protein antigen. Infection due to Flu B cannot be ruled out. Flu B antigen in the sample may be below the detection limit of the test. Performed By: #### I NFLUAB #### [facility] [address] [place] [address] Dr. Jose Luis Padgett INFLUENZA A AG Negative Normal NEGATIVE SEE COMMENT [facility] Comment on above: Performed By: #### I NFLUAB #### [facility] [address] [place] [address] Dr. Jose Luis Padgett INFLUENZA B AG Negative Normal NEGATIVE SEE COMMENT [facility] Comment on above: Performed By: #### I NFLUAB #### [facility] [address] [address] [address] Jose Luis Padgett INTERNAL CONTROLS Within Normal Limits Normal Wi thin Normal Limits [facility] Comment on above: Performed By: #### I NFLUAB #### [facility] [address] [address] [address] Jose Luis Padgett URon 04-08-2022 , QUAL Negative Normal NEGATIVE [facility] Comment on above: Performed By: #### P REGU, ERUR, UMICRO #### [facility] [address] [address] [address] Jose Luis Padgett URINE MICROSCOPIC ONLYon BACTERIA TRACE Abnormal NONE SEEN [facility] Comment on above: Performed By: #### P REGU, ERUR, UMICRO #### [facility] [address] [address] [address] Jose Luis Padgett Bacteria identified Cx Nom (U) NOT INDICATED Normal [facility] Comment on above: Performed By: #### P REGU, ERUR, UMICRO #### [facility] [address] [address] [address] Jose Luis Padgett CAST NONE SEEN Normal NONE SEEN [facility] Comment on above: Performed By: #### P REGU, ERUR, UMICRO #### [facility] [address] [address] [address] Jose Luis Padgett Crystals LM Nom (Urine sed) NONE SEEN Normal NONE SEEN [facility] Comment on above: Performed By: #### P REGU, ERUR, UMICRO #### [facility] [address] [address] [address] Jose Luis Padgett Epithelial cells LM Ql (Urine sed) RARE Normal NONE SEEN /RARE [facility] Comment on above: Performed By: #### P REGU, ERUR, UMICRO #### [facility] [address] [address] [address] Jose Luis Padgett MUCOUS NONE SEEN Normal NONE SEEN [facility] Comment on above: Performed By: #### P REGU, ERUR, UMICRO #### [facility] [address] [place], [place] [address] Dr. Jose Luis Padgett RBC NONE SEEN Abnormal 0-2 [facility] Comment on above: Performed By: #### P REGU, ERUR, UMICRO #### [facility] [address] [place], [place] [address] Dr. Jose Luis Padgett WBC 0-2 Abnormal NONE SEEN [facility] Comment on above: Performed By: #### P REGU, ERUR, UMICRO #### [facility] [address] [address] [address] 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 Anne Gerard requests that Sandi be evaluated due to AMA, hypothyroidism and anxiety/depression. Sandi is a 39 y.o. at 18w3d gestation who presents for evaluation of AMA, hypothyroidism and anxiety/depression. She is with her entire family today: 2 children and . She had a genetics consult as well as a level II ultrasound today. No complaints but increased stressors with her Mother's recent diagnosis of ovarian cancer at age 58. HPI OB History Para Term AB Living 3 2 2 0 0 2 SAB TAB Ectopic Multiple Live Births 0 0 0 0 2 # Outcome Date GA Lbr Darius/2nd Weight Sex Delivery Anes PTL Lv 3 Current 2 Term 09/28/15 37w1d 2.955 kg Vag-Spont RAFA Comments: GBS+; Oligo 1 Term 2007 40w0d 3.714 kg M Vag-Spont N RAFA Past Medical History: Diagnosis Date ? Anxiety disorder ? Depression ? GERD ? Hypothyroidism ? Infertility, female ? Migraines Past Surgical History: Procedure Laterality Date ? WISDOM TOOTH EXTRACTION Allergies Allergen Reactions ? Aspirin Other (See Comments) ? Bee Venom Other (See Comments) ? Grafton Extract Rash Social History Socioeconomic History ? Marital status: Spouse name: Not on file ? Number of children: Not on file ? Years of education: Not on file ? Highest education level: Not on file Occupational History ? Not on file Social Needs ? Financial resource strain: Not on file ? Food insecurity Worry: Not on file Inability: Not on file ? Transportation needs Medical: Not on file Non-medical: Not on file Tobacco Use ? Smoking status: Former Smoker ? Smokeless tobacco: Never Used Substance and Sexual Activity ? Alcohol use: Not Currently ? Drug use: Never ? Sexual activity: Not on file Lifestyle ? Physical activity Days per week: Not on file Minutes per session: Not on file ? Stress: Not on file Relationships ? Social connections Talks on phone: Not on file Gets together: Not on file Attends yazidism service: Not on file Active member of club or organization: Not on file Attends meetings of clubs or organizations: Not on file Relationship status: Not on file ? Intimate partner violence Fear of current or ex partner: Not on file Emotionally abused: Not on file Physically abused: Not on file Forced sexual activity: Not on file Other Topics Concern ? Not on file Social History Narrative ? Not on file Infections ? Live with someone with or exposed to TB Yes work risk ? Partner has hx of genital herpes ? Rash or viral illness since last menstruation No ? History of STI's ? Hx of MMR ? 2nd STI ? Hx of Chicken Pox Yes ? 3rd STI ? Is there anything else we should know? ? Other infections Genetics ? Age is > than 35y as of estimated date Yes ? Thalassemia No ? Neural Tube Defect No ? Congenital Heart Defect No ? Down Syndrome No ? Sukhdeep-Sachs No ? Korin Disease No ? Sickle Cell Disease or Trait No ? Hemophilia, Thrombophilia No ? Muscular Dystrophy No ? Cystic Fibrosis No ? Gerlach's Chorea No ? Mental Retardation/Autism No ? Maternal Metabolic Disorder No ? Recurrent Loss, or a Stillbirth No ? Inherited Genetic or Chromosomal Disorder No ? Illicit; Rec.drugs; Alcohol since last menses No Family History Problem Relation Age of Onset ? Asthma Mother ? Autoimmune Disease Mother ? Eczema Mother ? High Blood Pressure Mother ? Cancer Mother stage 3 Dx 2019 ? Cataracts Father ? High Blood Pressure Father ? Hyperthyroidism Father Outpatient Encounter Medications as of 12/19/2019 Medication Sig Dispense Refill ? omeprazole (PRILOSEC) 20 MG capsule TAKE 1 CAPSULE BY MOUTH EVERY DAY ? sertraline (ZOLOFT) 50 MG tablet Take 50 mg by mouth ? Vit-Fe Fumarate-FA (CLASSIC ) 28-0.8 MG TABS Take by mouth ? Acetaminophen (TYLENOL) 325 MG CAPS No facility-administere d encounter medications on file as of 12/19/2019. Review of Systems negative Physical Exam See GC vitals Ultrasound Results: - Please see Ultrasound test for full details. Assessment/Plan: Sandi Yo is a 39 y.o. at 18w3d with: Active Non-Hospital Problems Diagnosis Date Noted ? Supervision of high-risk of elderly multigravida 12/22/2019 Cf DNA negative, Level II anatomy on 12/19 recommended follow up in 2 weeks for completion of anatomy, declines any diagnostic testing GC consult with her medical consult on 12/19/19 ? Hypothyroidism affecting in second trimester 12/22/2019 ? 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 infant bonding, and disruptions within the family environment. All psychotropic medications studied to date cross the placenta. Zoloft is the medication that she is currently taking. Knowledge of gestational age is helpful in the decision about drug therapy because the major risk of teratogenesis is during embryogenesis (i.e., during the third through the eighth week of gestation). A single medication at a higher dose is favored over multiple medications for treatment of psychiatric illness during . We talked about the benefit risk ratio, but if this is controlling her symptoms I would recommend she continue this at this time. She may need to increase if hersymptoms worsen. ? Hypothyroidism during 12/19/2019 Adjustments this , most recent TSH 2.69 and on synthroid 200mcg daily, discussed proper way to take meds (taking with Zoloft) and timing of the day I discussed thyroid disease and in detail with the couple today. Thyroid requirements increase as the gestational age advances. We discussed the complication of with regard to uncontrolled thyroid disease including, including miscarriages, preeclampsia, placental abruption, low weight, prematurity and stillbirths. Uncontrolled hypothyroidism in is also associated with cognitive and developmental delays in the fetus, and when extreme can result in severe mental retardation and deafness. We also reviewed how to take the medication appropriately and medications that can interfere with its absorption. She is currently taking Synthroid 200 mcg daily. I would recommend monitoring TSH every 4-6 weeks during the . The following trimester specific TSH ranges are recommended as per The [place] [employer] 1st, 2nd and 3rd: < 4.0 mIU/L. If adjustments are made to her thyroid medication during the , she would need to return to her pre- dose in the period and have her TSH checked approximately one month after delivery. Recommendations are also for serial growth throughout the . ? Migraine headache 12/19/2019 Follow up 1. 2 weeks for completion of anatomy 2. Serial growth every 4 weeks throughout the 3. TSH every 4-6 weeks with adjustments accordingly and return to pre- dosing after delivery. 4. Familial cancer screening pending her Mother's diagnosis and if she has genetic screening after the The total patient time of the visit was 20 additional minutes, of which greater than 50% of the time was spent counseling and coordinating care. [facility] Combat Systems Engineer Authentication Interface Message Text Consult for AMA (low risk cfDNA) Consult for hypothyroid- Synthroid recently increase to 200mcg daily Pt is AUGUSTA Koehler Normal [facility] Combat Systems Engineer Authentication Interface Message Text The total patient time of the visit was 20 minutes for the genetics component of this consultation please see separate consultation for medication complications of , of which greater than 50% of the time was spent counseling and coordinating care. [facility] CNOVon 01-29-2019 CNOV Office Visit (LATRICE) SANDI YO ([id number]) 1980 F Date Time Provider Department 01/29/19 3:55 PM GEN CASTILLO During your visit today, we recorded the following information about you: Temperature Pulse Respiration Blood pressure 97.7 degrees 109/minute 17/minute 130/80 Weight Height 74.8 kg 1.676 m Gen Castillo MD 01/29/2019 6:13 PM Signed 38 year old former smoker (4 pack-years) seen in follow-up for evaluation of incidentally detected small solid lung nodules (CT for abdominal pain). Her other history includes hypothyroidism. Mrs. Yo currently feels well. She is very active, without limiting dyspnea having run a half marathon recently. She is not coughing or producing sputum, having chest pain, fevers, or appetite problems. She does not have new rashes, joint pains, headaches or vision changes. She has not had recent respiratory infections. She noted small lymph nodes in her neck. These were evaluated with ultrasound and felt to be benign appearing. CT chest shows multiple very small solid lung nodules, none larger than 3 mm diameter. Most are in the left lung with 3 of them clustered in the left lower lobe. There is no adenopathy or pleural disease. They are stable compared to her prior CT. There are no new worrisome findings. Mrs. Yo has incidentally discovered very small solid lung nodules, stable for > 12 months. The size and stability of the nodules, as well as her age, suggest a very low probability of malignancy. Additional surveillance imaging is not required. She understands this plan and is comfortable with it. > 25 minutes spent face to face with more than half of this for disease counseling about her lung nodules. Signature: Gen Castillo MD Referring Provider: GEN CASTILLO [[id number]] Allergies As of Date: 01/29/2019 Noted Allergy Reaction ASPIRIN 12/29/2011 16 - Unknown BEE STING 01/29/2019 7 - Swelling STRAWBERRY 01/29/2019 2 - Rash Date Reviewed: 01/29/2019 Reviewed by: Viridiana (Pcna) EMMANUEL Morfin - Fully Assessed Reason for Visit: Recheck [92] Primary Visit Diagnosis:Lung nodules [R91.8] Prescriptions as of 01/29/2019 Sig: LEVOTHYROXINE 137 MCG TABLET PROMETHAZINE 25 MG TABLET TAKE 1 TABLET 4 TIMES A DAY A* VENLAFAXINE ER 75 MG CAPSULE,* TAKE ONE CAPSULE EVERY DAY WI* Problem List As Of Date 01/29/2019 Noted Resolved Lung nodules [R91.8] INVALID FOR* Encounter Status:Closed by GEN CASTILLO MD on 01/29/19 Normal [facility] CT CHEST WO IVCONon 01-30-[address] CHEST WO IVCON * * *Final Report* * * DATE OF EXAM: Jan 29 2019 2:29PM [facility] [place] [facility] - CT CHEST WO IVCON / PROCEDURE REASON: Lung nodules * * * * Physician Interpretation * * * * EXAMINATION: CHEST CT WITHOUT CONTRAST CLINICAL HISTORY: Lung nodules Technique: Spiral CT acquisition of the chest from the thoracic inlet to the upper abdomen without contrast. MQ: [id number] CT Dose-Length Product: 219 mGy*cm CT Dose Reduction Employed: Automated exposure control (AEC) Comparison: 11/23/2017 RESULT: Limitations: None. Lines, tubes, and devices: None. Lung parenchyma and pleura: Stable small (2 to 5 mm) pulmonary nodules are noted. For example, a 4 mm lingular nodule is noted at image 145. Another 3 to 4 mm left lower lobe nodule is noted at image 147. Similarly, stable 3 mm left lower lobe nodule is noted at image 158. No new suspicious lung nodules are noted. No consolidation is noted. Central airways are patent. No pleural effusion. Thoracic inlet, heart, and mediastinum: The thyroid gland is atrophic. No mediastinal or hilar or axillary lymphadenopathy is noted. Small amount of fat interspersed thymic tissue is noted in the anterior mediastinum. The aorta is normal in size. The central pulmonary arteries are unremarkable. The cardiac chambers are normal in size. No significant coronary artery calcifications are noted, though the study was not optimized for coronary assessment. No pericardial effusion or thickening is noted. Bones and soft tissues: No destructive bone lesion. Minimal degenerative changes are noted in the thoracic spine. Asymmetric nodular densities in the left breast are unchanged and may be related to fibroglandular tissue. Upper abdomen: No abnormality in the imaged upper abdomen. - IMPRESSION: 1. Stable small (<6 mm) bilateral pulmonary nodules, favored to be benign. 2. No new suspicious lung nodules or intrathoracic lymphadenopathy. [employer]: PSCB Transcribe Date/Time: Jan 30 2019 11:34A Dictated by : ALETHEA GONZALEZ MD This examination was interpreted and the report reviewed and electronically signed by: ALETHEA GONZALEZ MD on Jan 30 2019 11:46AM EST [id number] Normal [facility] PROGRESSon 01-29-2019 Protein mass conc HNO ID: [id number] Author: Gen Castillo Service: ? Author Type: Physician Type: Progress Notes Filed: 01/29/2019 6:13 PM Note Text: 38 year old former smoker (4 pack-years) seen in follow-up for evaluation of incidentally detected small solid lung nodules (CT for abdominal pain). Her other history includes hypothyroidism. Mrs. Yo currently feels well. She is very active, without limiting dyspnea having run a half marathon recently. She is not coughing or producing sputum, having chest pain, fevers, or appetite problems. She does not have new rashes, joint pains, headaches or vision changes. She has not had recent respiratory infections. She noted small lymph nodes in her neck. These were evaluated with ultrasound and felt to be benign appearing. CT chest shows multiple very small solid lung nodules, none larger than 3 mm diameter. Most are in the left lung with 3 of them clustered in the left lower lobe. There is no adenopathy or pleural disease. They are stable compared to her prior CT. There are no new worrisome findings. Mrs. Yo has incidentally discovered very small solid lung nodules, stable for > 12 months. The size and stability of the nodules, as well as her age, suggest a very low probability of malignancy. Additional surveillance imaging is not required. She understands this plan and is comfortable with it. > 25 minutes spent face to face with more than half of this for disease counseling about her lung nodules. Signature: Gen Castillo MD Normal [facility] Protein mass conc HNO ID: [id number] Author: Lindy Vazquez Ct Service: Radiology Author Type: ? Type: Progress Notes Filed: 01/29/2019 2:15 PM Note Text: Radiology Service Progress Note PATIENT NAME: Sandi Yo DATE OF SERVICE: January 29, 2019 TIME: 2:14 PM PATIENT IDENTITY VERIFICATION COMPLETED USING TWO (2) METHODS: Patient confirmed name verbally and ID band matches.. PATIENT GENDER DATA: Female. status: : No status: NO. PATIENT RELEVANT IMPLANT DATA REVIEWED: Yes RADIOLOGY DEPARTMENT: CT; Exam(s) Completed: Chest PERIPHERAL IV DATA: Not applicable SIGNED BY: iLndy Vazquez Ct January 29, 2019 2:14 PM Normal [facility] HISTORY PHYSICALon 9 HISTORY PHYSICAL HNO ID: [id number] Author: Ashlie Samuel Service: ? Author Type: Nurse Practitioner Type: HANDP Filed: 01/24/2019 1:37 PM Note Text: Received authorization for CT chest scan. Case authorization number is [id number] and its authorized date is from 01/29-01/29. Normal [facility] CNPAlessia 12-21-2018 CNPN Telephone (PULMMN) SANDI YO ([id number]) 1980 F Date Time Provider Department 12/21/18 GEN CASTILLO During your visit today, we recorded the following information about you: Sara Finley 12/21/2018 11:06 AM Signed Received outside medical records from [facility]; report of ultrasound of head/neck 11/14/2018; scanned into [employer] and given to CNPs. Johnna Fall, ASSISTANT DEPARTMENT MANAGER.MANAGING DIRECTOR ATLAS 12/21/2018 3:27 PM Signed Neck US 12/19/[address] inf the right neck measuring 1cm and 0.5mm. Allergies As of Date: 12/21/2018 Noted Allergy Reaction ASPIRIN 12/29/2011 16 - Unknown Date Reviewed: 12/05/2017 Reviewed by: Ashlie Samuel - Fully Assessed Reason for Visit: Received Outside Medical Records [[id number]] Prescriptions as of 12/21/2018 Sig: LEVOTHYROXINE 137 MCG TABLET PROMETHAZINE 25 MG TABLET TAKE 1 TABLET 4 TIMES A DAY A* VENLAFAXINE ER 75 MG CAPSULE,* TAKE ONE CAPSULE EVERY DAY WI* Problem List As Of Date 12/21/2018 Noted Resolved Lung nodules [R91.8] INVALID FOR* Encounter Status:Closed by SARA ARGUELLES on 12/21/18 Normal [facility] SR-US Head/Neck Soft Tissue IMPORTon 11-14-2018 SR-US Head/Neck Soft Tissue IMPORT Images were obtained outside of [facility] [id number] Normal [facility] Vital Signs Date Time Vital Sign Value Performing Clinician Facility 12-30-2023 10:47-0500 Blood Pressure Location America Gudimella [facility] 12-30-2023 10:47-0500 Body temperature 98.24 [degF] America Gudimella [facility] 12-30-2023 10:47-0500 Diastolic blood pressure 78 mm[Hg] America Gudimella [facility] 12-30-2023 10:47-0500 Heart rate 99 /min America Gudimella [facility] 12-30-2023 10:47-0500 SaO2% (BldA) [Mass fraction] 97 % America Gudimella [facility] 12-30-2023 10:47-0500 Systolic blood pressure 116 mm[Hg] America Gudimella [facility] 12-20-2023 08:30-0500 Body height 162.6 cm Madyson Hinkle MD Work Phone: [facility] 12-20-2023 08:30-0500 Body mass index (BMI) [Ratio] 31.69 kg/m2 Madyson Hinkle MD Work Phone: [facility] 12-20-2023 08:30-0500 Body temperature 97.81 [degF] Madyson Hinkle MD Work Phone: [facility] 12-20-2023 08:30-0500 Body weight 83.73 kg Madyson Hinkle MD Work Phone: [facility] 12-20-2023 08:30-0500 Diastolic blood pressure 76 mm[Hg] Madyson Hinkle MD Work Phone: [facility] 12-20-2023 08:30-0500 Heart rate 84 /min Madyson Hinkle MD Work Phone: [facility] 12-20-2023 08:30-0500 SaO2% (BldA) [Mass fraction] 98 % Madyson Hinkle MD Work Phone: [facility] 12-20-2023 08:30-0500 Systolic blood pressure 112 mm[Hg] Madyson Hinkle MD Work Phone: [facility] Healthcare Encounters Encounter Date Encounter Type Care Provider Facility Start: 07-19-2024 End: 07-19-2024 ambulatory Madyson Hinkle Facility:[facility] Start: 07-17-2024 End: 07-17-2024 ambulatory REX GODINEZ Not Available Start: 07-11-2024 End: 07-11-2024 ambulatory MADYSON Lucita ARIN Not Available Start: 04-18-2024 End: 04-18-2024 ambulatory MADYSON Lucita ARIN Not Available Start: 02-28-2024 End: 02-28-2024 ambulatory COCO ADAMS Not Available Start: 02-01-2024 End: 02-01-2024 ambulatory GAB SOSA Not Available Start: 01-22-2024 End: 01-22-2024 ambulatory Ashlyn Cheney Facility:[facility] Start: 01-22-2024 End: 01-22-2024 ambulatory DO Ashlyn Cheney Work Phone: [facility] Work Phone: Start: 01-22-2024 End: 01-22-2024 Patient encounter procedure DO Ashlyn Cheney Work Phone: [facility] [address] Work Phone: Start: 12-30-2023 End: 12-30-2023 ambulatory America Gudimella Facility:[facility] Start: 12-30-2023 End: 12-30-2023 Patient encounter procedure America Gudimella [facility] Start: 12-20-2023 Sondra church MD Work Phone: [facility] Start: 12-20-2023 Sondra church MD Work Phone: [facility] Start: 12-20-2023 End: 12-20-2023 Office outpatient visit 25 minutes Madyson Hinkle MD Work Phone: [facility] Comment on above: Facial rash (Primary Dx); Lymphadenopathy; Chronic fatigue; Acquired hypothyroidism (CMS/HCC); Singh Hartley virus infection; BMI 31.0-31.9,adult; Obesity (BMI 30.0-34.9) Start: 12-20-2023 End: 12-20-2023 ambulatory MADYSON HINKLE Not Available Start: 11-29-2023 End: 11-29-2023 ambulatory COCO ADAMS Not Available Start: 03-09-2023 End: 03-09-2023 ambulatory DEMI HINKLE Facility:[facility] Start: 02-17-2023 End: 02-17-[address] ASHLYN PHIPPS . Facility:[facility] Start: 09-15-2022 End: 09-16-[address] GEOFFREY LEZAMA . Facility:[facility] Start: 08-05-2022 End: 08-05-2022 Patient encounter procedure Madyson Hinkle [facility] Start: 07-21-2022 End: 07-22-[address] ASHLYN PHIPPS . Facility:[facility] Start: 05-05-2022 End: 05-05-2022 ambulatory JORGE SOLIS . Facility:[facility] Start: 04-08-2022 End: 04-08-2022 ambulatory AYAAN KRAMER . Facility:[facility] Start: 01-29-2019 End: 01-30-2019 Patient encounter procedure GEN CASTILLO [facility] Start: 01-29-2019 End: 01-31-2019 Patient encounter procedure MAXIMO LEBLANC [facility] Procedures Date Procedure Procedure Detail Performing Clinician Start: 07-28-2023 Mammography Madyson cortez MD Work Phone: Extraction of wisdom tooth H jesika Arin Comment on above: x4 Plan of Treatment Date Care Activity Detail Author Start: 07-28-2024 Screening for malignant neoplasm of breast Mammogram [facility] Start: 02-28-2024 End: 02-28-2024 Patient encounter procedure 02/28/2024 10:20 AM EDT Office Visit [facility] [address] [place] [id number] Coco Adams, PIRSCILLA [address] [place] [address] [facility] Start: 01-22-2024 Hemolytic complement CH50 level [facility] Start: 01-22-2024 [facility] Start: 12-20-2023 End: 12-20-2024 25-hydroxyvitamin D3 [Mass/volume] in Serum or Plasma Vitamin D 25 hydroxy Lab Routine Facial rash Lymphadenopathy Chronic fatigue Expected: 12/20/2023 (Approximate), Expires: 12/20/2024 [facility] Comment on above: Expected: 12/20/2023 (Approximate), Expi res: 12/20/2024 Start: 12-20-2023 End: 12-20-2024 C reactive protein [Mass/volume] in Serum or Plasma C-reactive protein Lab Routine Facial rash Lymphadenopathy Chronic fatigue Expected: 12/20/2023 (Approximate), Expires: 12/20/2024 [facility] Comment on above: Expected: 12/20/2023 (Approximate), Expi res: 12/20/2024 Start: 12-20-2023 End: 12-20-2024 CBC W Auto Differential panel - Blood CBC and differential Lab Routine Facial rash Lymphadenopathy Chronic fatigue Expected: 12/20/2023 (Approximate), Expires: 12/20/2024 [facility] Work Phone: Comment on above: Expected: 12/20/2023 (Approximate), Expi res: 12/20/2024 Start: 12-20-2023 End: 12-20-2024 Comprehensive metabolic 2000 panel - Serum or Plasma Comprehensive metabolic panel Lab Routine Facial rash Lymphadenopathy Chronic fatigue Expected: 12/20/2023 (Approximate), Expires: 12/20/2024 [facility] Comment on above: Expected: 12/20/2023 (Approximate), Expi res: 12/20/2024 Start: 12-20-2023 End: 12-20-2024 Singh-Hartley virus VCA antibody panel Singh-Hartley virus VCA antibody panel Lab Routine Facial rash Lymphadenopathy Chronic fatigue Expected: 12/20/2023 (Approximate), Expires: 12/20/2024 [facility] Comment on above: Expected: 12/20/2023 (Approximate), Expi res: 12/20/2024 Start: 12-20-2023 End: 12-20-2024 Erythrocyte sedimentation rate Sedimentation rate, automated Lab Routine Facial rash Lymphadenopathy Chronic fatigue Expected: 12/20/2023 (Approximate), Expires: 12/20/2024 [facility] Comment on above: Expected: 12/20/2023 (Approximate), Expi res: 12/20/2024 Start: 12-20-2023 End: 12-20-2024 Nuclear Ab [Titer] in Serum by Immunofluorescence HARINDER Lab Routine Facial rash Lymphadenopathy Chronic fatigue Expected: 12/20/2023 (Approximate), Expires: 12/20/2024 [facility] Comment on above: Expected: 12/20/2023 (Approximate), Expi res: 12/20/2024 Start: 12-20-2023 End: 12-20-2024 TSH W/REFLEX TO FT4 TSH W/REFLEX TO FT4 Lab Routine Facial rash Lymphadenopathy Chronic fatigue Expected: 12/20/2023 (Approximate), Expires: 12/20/2024 [facility] Comment on above: Expected: 12/20/2023 (Approximate), Expi res: 12/20/2024 Start: 12-20-2023 End: 12-20-2023 Patient encounter procedure 12/20/2023 8:40 AM EST Office Visit [facility] [address] [place] [address] Madyson Hinkle MD [address] [place], [place] [id number] Arrived [facility] Comment on above: Arrived Start: 07-07-2023 Influenza vaccination Influenza Vaccine (#1) [facility] Start: 2012 Screening for malignant neoplasm of cervix [facility] Start: 2003 Screening for malignant neoplasm of cervix Pap Smear [facility] Immunizations Immunization Date Immunization Notes Care Provider Fa cili 09-15-2022 Moderna SARS-CoV-2 Vaccination Madyson Hinkle MD Work Phone: [facility] 08-27-2021 Moderna SARS-CoV-2 Vaccination Madyson Hinkle MD Work Phone: [facility] 12-02-2020 SARS-CoV-2 (COVID-19 ) mRNA-1273 vaccine [facility] Gudimella [facility] 11-03-2020 SARS-CoV-2 (COVID-19 ) mRNA-12[address] vaccine [address] [facility] 02-25-2020 tetanus toxoid, reduced diphtheria toxoid, and acellular pertussis vaccine, adsorbed Madyson Hinkle [facility] 08-12-2019 influenza virus vaccine, live, attenuated, for intranasal use Madyson Hinkle [facility] 08-12-2019 influenza virus vaccine, unspecified formulation Madyson Hinkle MD Work Phone: [facility] 08-06-2019 influenza virus vaccine, unspecified formulation [place] Gudimella [facility] 08-06-2019 influenza, seasonal, injectable, preservative free Madyson Hinkle MD Work Phone: [facility] 09-29-2015 tetanus toxoid, reduced diphtheria toxoid, and acellular pertussis vaccine, adsorbed Madyson Hinkle [facility] 02-27-2009 hepatitis B vaccine, adult dosage Madyson Hinkle MD Work Phone: [facility] 09-29-2008 hepatitis B vaccine, adult dosage Madyson Hinkle MD Work Phone: [facility] 09-01-2008 hepatitis B vaccine, adult dosage Madyson Hinkle MD Work Phone: [facility] NEGATED: Highlighted row has not occurred!12-30-2023 influenza virus vaccine, unspecified formulation [facility] Payers Date Payer Category Payer Unknown BCBS BCBS [id number] 2022-Present [phone] [address] [place] [address] [id number] 2022 Unknown [id number] 2019 Unknown [id number] 1980 Unknown [id number] 1982 Unknown [id number] 2.16.840.1.646127.3.579.2.593 1982 Unknown [id number] 2.16.840.1.866663.3.579.2.593 1982 Unknown [id number] 2.16.840.1.763111.3.579.2.593 1982 Unknown [id number] 2.16.840.1.182820.3.579.2.593 1982 Unknown [id number] 2.16.840.1.756487.3.579.2.1259 1982 Unknown [id number] 2.16.840.1.709958.3.579.2.1259 1982 Unknown [id number] 2.16.840.1.018535.3.579.2.1259 1982 Unknown [id number] 2.16.840.1.440732.3.579.2.1259 1982 Unknown [id number] 2.16.840.1.194572.3.579.2.1259 1982 Unknown [id number] 2.16.840.1.603859.3.579.2.1259 1982 Unknown [id number] 2.16.840.1.429598.3.579.2.1259 1982 Unknown [id number] 2.16.840.1.831171.3.579.2.727 1982 Unknown [id number] [id number] 1959 Self-pay Unknown [id number] [id number] Unknown [id number] [id number] Social History Date Type Detail Facility Start: 06-25-2020 End: 12-30-2023 Tobacco smoking status Ex-smoker (finding) [facility] Comment on above: quit 2016 Tobacco smoking status Never [facility] Comment on above: quit 2016 Start: 04-19-2023 End: 11-29-2023 Sex Assigned At Female [facility] End: 11-06-2014 History of tobacco use Current smoker [facility] End: 11-06-2014 History of tobacco use Cigarette Smoker [facility] Start: 04-19-2023 End: 04-20-2023 Cigarettes smoked current (pack per day) - Reported 0.5 [facility] Start: 04-20-2023 Tobacco use and exposure Smokeless tobacco non-user [facility] Start: 11-29-2023 End: 12-20-2023 Alcohol intake Lifetime non-drinker (finding) [facility] Start: 04-20-2023 Education 21 [facility] Start: 04-20-2023 Alcohol Comment Caffeine intake: sod a [facility] Start: 1980 Sex Assigned At Not on file [facility] Start: 1980 Sex Assigned At Female [facility] Medical Equipment Procedure Code Equipment Code Equipment Origin al Text Equipment Identifier Dates SECTION Unknown 05/13/20 Unknown Uterus FDA Start: 05-13-2020 SECTION Unknown 05/13/20 Unknown Uterus FDA Start: 05-13-2020 Functional Status Date Assessment Result Facility 12-30-2023 Functional Status N/A [facility] History of Present illness Narrative 12-20-2023 Madyson Hinkle MD - 12/20/2023 8:40 AM EST Note Date & Type Note Facility 12-20-2023 History of Presen t illness Narrative Subjective Patient ID: Sandi Yo is a 43 y.o. female who presents for Rash (Rash on face since seeing derm, getting colds approx every month, swollen lymph nodes.). HPI pt here for acute visit. States she has been getting colds about 1/month for the last 6 months. 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 Is feeling tired chronically. Will also have intermittent enlargement of lymph nodes. Also c/o facial rash on her face and cheeks. Will flare up and be painful. Is following with derm. Denies new exposures. Does a fam hx of SLE. Review of Systems General: Denies fever, chills fatigue, [place] or weight loss/gain CV: Denies CP, palpitations or swelling in legs Resp: denies cough, SOB or wheezing GI: Denies abd pain/n/v/c/d Skin: Admits rash Neuro: Denies LH or dizziness Objective Blood pressure 112/76, pulse 84, temperature 97.8 F, height 5' 4 , weight 184 lb 9.6 oz, SpO2 98%. Body mass index is 31.69 kg/m . Physical Exam General: alert & oriented, NAD Head: NC/AT Oral Cavity: MMM Skin: warm, dry Heart: RRR, No m/r/g, S1S2 nml Lungs: CTA b/l Abdomen: soft, ND/NT, BS wnl Musculoskeletal: normal gait Extremities: no clubbing, cyanosis or edema Neurological: nonfocal Psych: mood/affect full range Assessment/Plan Sandi was seen today for rash. Diagnoses and all orders for this visit: Facial rash (Primary) - CBC and differential; Future - Comprehensive metabolic panel; Future - TSH W/REFLEX TO FT4; Future - Vitamin D 25 hydroxy; Future - HARINDER; Future - Sedimentation rate, automated; Future - C-reactive protein; Future - Singh-Hartley virus VCA antibody panel; Future - CBC and differential - Comprehensive metabolic panel - TSH W/REFLEX TO FT4 - Vitamin D 25 hydroxy - HARINDER - Sedimentation rate, automated - C-reactive protein - Singh-Hartley virus VCA antibody panel Discussed possible causes, sx tx, side effects of meds and concerning sx to monitor for. Lymphadenopathy - CBC and differential; Future - Comprehensive metabolic panel; Future - TSH W/REFLEX TO FT4; Future - Vitamin D 25 hydroxy; Future - HARINDER; Future - Sedimentation rate, automated; Future - C-reactive protein; Future - Singh-Hartley virus VCA antibody panel; Future - CBC and differential - Comprehensive metabolic panel - TSH W/REFLEX TO FT4 - Vitamin D 25 hydroxy - HARINDER - Sedimentation rate, automated - C-reactive protein - Singh-Hartley virus VCA antibody panel Discussed possible causes, sx tx, side effects of meds and concerning sx to monitor for. Chronic fatigue - CBC and differential; Future - Comprehensive metabolic panel; Future - TSH W/REFLEX TO FT4; Future - Vitamin D 25 hydroxy; Future - HARINDER; Future - Sedimentation rate, automated; Future - C-reactive protein; Future - Singh-Hartley virus VCA antibody panel; Future - CBC and differential - Comprehensive metabolic panel - TSH W/REFLEX TO FT4 - Vitamin D 25 hydroxy - HARINDER - Sedimentation rate, automated - C-reactive protein - Singh-Hartley virus VCA antibody panel Discussed possible causes, sx tx, side effects of meds and concerning sx to monitor for. Acquired hypothyroidism (CMS/HCC) Stable, continue to monitor. No change in regimen. Singh Hartley virus infection - as above BMI 31.0-31.9,adult Obesity (BMI 30.0-34.9) - continue to monitor weight documented in this encounter [facility] Evaluation + Plan note Note Date & Type Note Facility Evaluation + Plan note No data available for this section [facility] Evaluation note Note Date & Type Note Facility Evaluation note Diagnosis Facial rash- Primary Lymphadenopathy Enlargement of lymph nodes Chronic fatigue Other malaise and fatigue Acquired hypothyroidism (CMS/HCC) Unspecified hypothyroidism Singh Hartley virus infection Infectious mononucleosis BMI 31.0-31.9,adult Obesity (BMI 30.0-34.9) documented in this encounter [facility] Evaluation note Note Date & Type Note Facility Evaluation note No assessment information availa [facility] Work Phone: Hospital Discharge instructions Note Date & Type Note Facility Hospital Discharge instructions No data available for this section [facility] Progress note Note Date & Type Note Facility Progress note No data available for this section [facility] Summary Purpose Family History No Family History Records FoundNo Family History Records FoundNo Family History Records Found No data available for this section No Family History Records FoundNo Family History Records FoundNo Family History Records Found Advance Directives No Advanced Directives Records FoundNo Advanced Directives Records FoundNo Advanced Directives Records FoundNo Advanced Directives Records FoundNo Advanced Directives Records FoundNo Advanced Directives Records Found Additional Source Comments INFORMATION SOURCE (unrecogn ized section and content) DATE CREATED AUTHOR 02/03/2019 [facility] DATE CREATED AUTHOR AUTHOR'S ORGANIZ ATION 05/25/2020 [facility] DATE CREATED AUTHOR AUTHOR'S ORGANIZ ATION 03/16/2023 [facility] DATE CREATED AUTHOR AUTHOR'S ORGANIZ ATION 01/29/2024 [facility] DATE CREATED AUTHOR AUTHOR'S ORGANIZ ATION 07/19/2024 [facility] EPIC DATE CREATED AUTHOR AUTHOR'S ORGANIZ ATION 07/29/2024 [facility] Care Team (unrecognized sect ion and content) Billing Collections Specialist Relationship Specialty Start Date End Date Madyson Hinkle MD [address] [place] [address] PCP - General Family Medicine 04/12/23 Madyson Hinkle MD [address] [place] [address] PCP - [employer] 07/07/23 Billing Collections Specialist Relationship Specialty Start Date End Date Madyson Hinkle MD [address] [place] [address] PCP - General Family Medicine 04/12/23 Madyson Hinkle MD [address] [place] [address] PCP - Adriano Kennedy 07/07/23 Team Status: Active Member Role Status Dates Ashlyn Cheney DO Primary Care Provider Active Team Status: Inactive Member Role Status Dates Ashlyn Cheney DO Primary Care Provider Active Start: January 22, 2024 End: January 22, 2024 Dmitri Lilly MD Attending Provider Active St art: January 22, 2024 End: January 22, 2024 Reason for Visit (unrecogniz ed section and content) Reason Comments Rash Rash on face since s eeing derm, getting colds approx every month, swollen lymph nodes. Goals (unrecognized section and content) Goals may be documented in a n alternate section FOR RECORDS PERTAINING TO PATIENTS WHO ARE OR HAVE BEEN ENROLLED IN A CHEMICAL DEPENDENCY/SUBSTANCEABUSE PROGRAM, SOME INFORMATION MAY BE OMITTED. This clinical summary was aggregated from multiple sources. Caution should be exercised in using it in the provision of clinical care. This summary normalizes information from multiple sources, and as a consequence, information in this document may materially change the coding, format and clinical context of patient data. In addition, data may be omitted in some cases. CLINICAL DECISIONS SHOULD BE BASED ON THE PRIMARY CLINICAL RECORDS. [employer] provides no warranty or guarantee of the accuracy or completeness of information in this document.
--- NOTE | 2024-07-31 07:56 | MM_ITS ---
Patient Name: LUIS MANUEL YO MR#: [id number] : 1980 Exam Date: 07/31/2024 Ordering Doctor: PRISCILLA Gonsalves . RADIOLOGY REPORT PROCEDURE: MM TOMOSYNTHESIS SCREENING BI COMPARISON: MM TOMOSYNTHESIS SCREENING BI, 07/27/2023. MG MAMM SCREEN 3D CEDRICK CAD, 07/21/2022. INDICATIONS: Screening Calculator Name NCI Breast Cancer Risk Assessment Tool 5 Year Breast Cancer Risk 0.70% Lifetime Breast Cancer Risk 10.00% Personal Breast Cancer No Personal Ovarian Cancer No Treatments None Family Cancers Grandmother-maternal with breast cancer at age ~65; Aunt-paternal with breast cancer at age ~55; Mother with ovarian cancer at age 56; Grandmother-maternal with cervical cancer at age ~40; Grandfather-paternal with lung cancer at age ~72. LOCATION: [facility] BREAST COMPOSITION: There are scattered areas of fibroglandular density. FINDINGS: DIAGNOSTIC CATEGORY 2--BENIGN FINDING: RIGHT BREAST: No significant suspicious finding. Scattered benign-appearing lymph nodes are present. No significant change has occurred. LEFT BREAST: No significant suspicious finding. No significant change has occurred. RECOMMENDATIONS: ROUTINE MAMMOGRAM AND CLINICAL EVALUATION IN 12 MONTHS. PLEASE NOTE: A NORMAL MAMMOGRAM DOES NOT EXCLUDE THE POSSIBILITY OF BREAST CANCER. A CLINICALLY SUSPICIOUS PALPABLE LUMP SHOULD BE BIOPSIED. Dictated by: Cecil Pike M.D. on 07/31/2024 at 15:54 Approved by: Cecil Pike M.D. on 07/31/2024 at 15:57
== END 2024-07-31 07:51 | disposition home or self-care (01) ==
LOC: MAMMO 07:50
PROVIDERS: PCP Student in an Organized Health Care Education/Training Program; Visit Provider Physician Assistant
DX: Z12.31 Encounter for screening mammogram for malignant neoplasm of breast (principal); Z80.3 Family history of malignant neoplasm of breast; Z80.41 Family history of malignant neoplasm of ovary; Z80.8 Family history of malignant neoplasm of other organs or systems; Z80.1 Family history of malignant neoplasm of trachea, bronchus and lung
CPT/HCPCS: 77063; 77067

== ENCOUNTER 2024-08-15 07:31 | Outpatient (RCR) | payer BC, SELFPAY | END 2024-09-05 23:59 | disposition home or self-care (01) | LOC: HEMC 07:31 | PROVIDERS: PCP Student in an Organized Health Care Education/Training Program; Visit Provider Internal Medicine Hematology & Oncology | DX: Z15.89 Genetic susceptibility to other disease (principal); Z15.09 Genetic susceptibility to other malignant neoplasm; Z80.41 Family history of malignant neoplasm of ovary; Z80.3 Family history of malignant neoplasm of breast | CPT/HCPCS: G0463 ==

== ENCOUNTER 2025-10-27 20:17 | Outpatient (REF) | payer BC, SELFPAY ==
--- OUTSIDE RECORDS SUMMARY | 2024-07-23 08:30 | XMS_ITS ---
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 Name Role Phone Arin AVELAR, Madyson Primary Care Provider Arlene Balbuena [phone] REASON FOR VISIT New PT Onc Encounters Encounter Location Date Provider Diagnosis [facility] [address] [place] [id number] 07/23/2024 Arlene York Plan Of Treatment No Information Progress Notes * Josy YOLutherB: [birth year] (45 yo F)Acc No.[id number]:07/23/2024 UNLOCKED PROGRESS NOTE Progress Notes Patient: Sandi FERGUSON :?Arlene Narvaez M.D.:1980???Age:44 Y ???Sex:FemaleDate:4Phone:[phone]:[address], [id number]:Madyson Hinkle MD Subjective: * Chief Complaints: * 1 . New PT Onc. * Medical History: Objective: * Vitals: Assessment: Plan: * Treatment: * * Electronic signature of Arlene York MD, [id number] on 10/27/2025 at 01:33 PM ESTSign off status: PendingVisit Status:?PEN (Pending) * Provider: Nic Narvaez M.D. Date: 0 07/23/2024 Generated for Printing/Faxing/eTransmitting on:?10/27/2025 01:33 PM EST
--- OUTSIDE RECORDS SUMMARY | 2024-08-15 03:15 | XMS_ITS ---
Author Organization [facility] in [place] Address [address] [place] [address] Care Team Providers Care Boat Canvas Maker And Installer Name Role Phone Arin AVELAR, Madyson Primary Care Provider Arlene Balbuena [phone] REASON FOR VISIT MD Encounters Encounter Location Date Provider Diagnosis [facility] On[facility] [address] [place] [id number] 08/15/2024 Arlene York Plan Of Treatment No Information Progress Notes * Josy YOaDOB: [birth year] (45 yo F)Acc No.[id number]:08/15/2024 UNLOCKED PROGRESS NOTE Progress Notes Patient: Sandi FERGUSON :?Arlene Narvaez M.D.:1980???Age:44 Y ???Sex:FemaleDate:08/15/2024hone:[phone][address] [id number]:Madyson Hinkle MD Subjective: * Chief Complaints: * 1 . MD. * Medical History: Objective: * Vitals: Assessment: Plan: * Treatment: * * Electronic signature of Arlene York MD, [phone] on 10/27/2025 at 01:33 PM ESTSign off status: PendingVisit Status:?PEN (Pending) * Provider: Nic Narvaez M.D. Date: Generated for Printing/Fakonstanting/eTransmitting on:?10/27/2025 01:33 PM EST
--- OUTSIDE RECORDS SUMMARY | 2025-10-27 14:00 | XMS_ITS | Encounter Summary ---
Author Organization [facility] Address [address] [place] [address] Care Team Providers Care Manager Systems Name Role Phone Madyson Hinkle MD Primary Care Provider [phone] Reason for Visit * ReasonCommentsWell Women Visit Encounter Details DateTypeDepartmentCare Team (Latest Contact Info)Zaorlwildmq23/22/2025 2:00 PM ESTProcedure Visit [facility] [address] [facility] [place] [address] Ainsley Gonsalves PA [address] [place], [place] [id number] Well woman exam with routine gynecological exam; Breast cancer screening by mammogram Social History Tobacco UseTypesPacks/DayYears UsedDateSmoking Tobacco: FormerCigarettes0.510 11/06/2004 - 11/06/2014Smokeless Tobacco: NeverAlcohol UseStandard Drinks/Week CommentsNot Currently0 (1 standard drink = 0.6 oz pure alcohol)Caffeine intake: sodaSocial Connection and Isolation PanelAnswerDate RecordedIn a typical week, how many times do you talk on the phone with family, friends, or neighbors?More than three times a week02/01/2024How often do you get together with friends or relatives?Once a week02/01/2024How often do you attend hinduism or lutheran services?More than 4 times per year02/01/2024o you belong to any clubs or organizations such as hinduism groups, unions, fraternal or athletic groups, or school groups?Yes02/01/2024How often do you attend meetings of the clubs or organizations you belong to?More than 4 times per year02/01/2024re you , , , , never , or living with a partner? 02/01/2024UDIT-CAnswerDate RecordedQ1: How often do you have a drink containing alcohol?Monthly or less02/01/2024Q2: How many drinks containing alcohol do you have on a typical day when you are drinking?1 or Q3: How often do you have six or more drinks on one occasion?Never02/01/2024Overall Financial Resource Strain (CARDIA)AnswerDate RecordedHow hard is it for you to pay for the very basics like food, housing, medical care, and heating?Not hard at all 02/01/2024HQ-2AnswerDate RecordedPatient Health Questionnaire-2 Score0 03/07/2025[facility] - Occupational Stress QuestionnaireAnswerDate RecordedDo you feel stress - tense, restless, nervous, or anxious, or unable to sleep at night because yourmind is troubled all the time - these days?To some jihwlb8902/01/2024Exercise Vital SignAnswerDate Recorded On average, how many days per week do you engage in moderate to strenuous exercise (like a brisk walk)?5 days02/01/2024On average, how many minutes do you engage in exercise at this level?20 min02/01/2024Hunger Vital SignAnswerDate RecordedWithin the past 12 months, you worried that your food would run out before you got the money to buymore.Never true02/01/2024Within the past 12 months, the food you bought just didn't last and you didn't have money to get more.Never true02/01/2024RAPARE - TransportationAnswerDate RecordedIn the past 12 months, has lack of transportation kept you from medical appointments or from getting medications?No02/01/2024In the past 12 months, has lack of transportation kept you from meetings, work, or from getting things needed for daily living?No02/01/2024Housing Stability Vital SignAnswerDate RecordedIn the last 12 months, was there a time when you were not able to pay the mortgage or rent on time?No02/01/2024Number of Places Lived in the Last YearNot on file 02/01/2024In the last 12 months, was there a time when you did not have a steady place to sleep or slept in ashelter (including now)?No02/01/2024EducationAnswer Date RecordedWhat is the highest level of school you have completed or the highest degree you have received?Some college, no naahud5904/20/2023 CommentsNoSex and Gender InformationValueDate RecordedSex Assigned at BirthNot on fileLegal JepHrmczi19/15/2023 6:45 PM EDTGender IdentityNot on fileSexual OrientationNot on filedocumented as of this encounter Last Filed Vital Signs Vital SignReadingTime TakenCommentsBlood Zhdrperg787/7010/27/2025 1:52 PM EST Pulse--Temperature--Respiratory Rate--Oxygen Saturation--Inhaled Oxygen Concentration--Juxnvw78.5 kg (181 lb 12.8 oz)10/27/2025 1:52 PM ESTHeight--Body Mass Index29.3405 8:16 AM EDTdocumented in this encounter Progress Notes * PRISCILLA Henley - 10/27/2025 2:00 PM EST Reason for Appointment: Patient ID: Sandi Wagner is a 45 y.o. female who presents for Well Women Visit Patient presents today for Annual Exam. MEDICATIONS Current Outpatient Medications Medication Instructions Levonorgestrel (Mirena, 52 MG,) 20 MCG/DAY intrauterine device levothyroxine (SYNTHROID, LEVOXYL) 125 mcg, Oral, Daily tretinoin (Retin-A) 0.025 % cream Apply pea size amount to the face, once every other night evening/night time, 30 day supply venlafaxine XR (EFFEXOR XR) 75 mg, Oral, Daily, Do not crush or chew. 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 Lung nodules 12/05/2017 Obsessive behavior 04/19/2023 Other acne 04/19/2023 Splenomegaly 04/19/2023 Screening for metabolic disorder 03/07/2025 Lipid screening 03/07/2025 Positive HARINDER (antinuclear antibody) 03/07/2025 Bruising 03/07/2025 Resolved Ambulatory Problems Diagnosis Date Noted Depressive disorder 04/19/2023 Past Medical History: Diagnosis Date Arthritis Asthma (HCC) Chicken pox Circumvallate placenta (HHS-HCC) Depression GERD (gastroesophageal reflux disease) Hypothyroidism Migraine Positive GBS test HISTORY PAST MEDICAL HISTORY SOCIAL HISTORY Past Medical History: Diagnosis Date Anxiety Arthritis Asthma (HCC) Chicken pox Circumvallate placenta (HHS-HCC) Depression GERD (gastroesophageal reflux disease) Hypothyroidism Migraine Positive GBS test Social History Tobacco Use Smoking status: Former Current packs/day: 0.00 Average packs/day: 0.5 packs/day for 10.0 years (5.0 ttl pk-yrs) Types: Cigarettes Start date: 11/06/2004 Quit date: 11/06/2014 Years since quittin.9 Smokeless tobacco: Never Vaping Use Vaping status: Never Used Substance Use Topics Alcohol use: Not Currently Comment: Caffeine intake: soda Drug use: Not Currently FAMILY HISTORY Family History Problem Relation Name Age of Onset Lupus Mother Gilda Moseleyfle Tuberculosis Mother Gilda Medina Eczema Mother Gilda Dobsone Hypertension Mother Gilda Dobsone Other (malignant neoplasm) Mother Gilda Dobsone female genital Ovarian cancer Mother Gilda Dobsone Cataracts Father Hans Medina Hypothyroidism Father Hans Medina Other (hypoglycemia) Father Hans Medina Hypertension Father Hans Medina Breast cancer Mother's Sister Breast cancer Maternal Grandmother Cervical cancer Maternal Grandmother Lung cancer Paternal Grandfather Melanoma Neg Hx SURGICAL HISTORY Past Surgical History: Procedure Laterality Date SECTION, LOW TRANSVERSE 05/2020 WISDOM TOOTH EXTRACTION 07/18/2019 x4 REVIEW OF SYSTEMS Review of Systems: Review of Systems Constitutional: Negative. HENT: Negative. Eyes: Negative. Respiratory: Negative. Cardiovascular: Negative. Gastrointestinal: Negative. Genitourinary: Negative. Musculoskeletal: Negative. Skin: Negative. Neurological: Negative. All other systems reviewed and are negative. Hematological: Negative. Endocrine: Negative. Allergic/Immunologic: Negative. OBJECTIVE Objective: Physical Exam Constitutional: Appearance: Normal appearance. Genitourinary: Right Adnexa: not tender and no mass present. Left Adnexa: not tender and no mass present. No cervical discharge. IUD strings visualized. Breasts: Breasts are soft. Right: Normal. Left: Normal. HENT: Head: Normocephalic. Nose: Nose normal. Mouth/Throat: Mouth: Mucous membranes are moist. Cardiovascular: Rate and Rhythm: Normal rate. Pulmonary: Effort: Pulmonary effort is normal. Abdominal: General: Bowel sounds are normal. Palpations: Abdomen is soft. Musculoskeletal: General: Normal range of motion. Cervical back: Normal range of motion. Neurological: General: No focal deficit present. Mental Status: She is alert. Skin: General: Skin is warm and dry. Psychiatric: Mood and Affect: Mood normal. Vitals and nursing note reviewed. Exam conducted with a manager pulmonary present. Vitals: Estimated body mass index is 29.34 kg/m?? as calculated from the following: Height as of 03/07/25: 5' 6 . Weight as of this encounter: 181 lb 12.8 oz. BP: 102/70 No LMP recorded. (Menstrual status: No Periods). Assessment/Plan ICD-10-CM 1. Well woman exam with routine gynecological exam Z01.419 THIN PREP TIS PAP AND HR HPV DNA CANCELED: THIN PREP TIS PAP AND HR HPV DNA 2. Breast cancer screening by mammogram Z12.31 Assessment/Plan Annual Exam: Patient presents today for an annual exam. Patient states she is doing well and but states having some hormone changes. States stopped spirinolactone and IUD needs changed. She will schedule for IUD removal and reinsertion, if she continues with issues, we will order SmartCare systemr labs. Pt wishes to hold off on blood work at this time. Pap was obtained without difficulty. Patient to schedule an IUD removal/insert for Mirena. No orders of the defined types were placed in this encounter. Follow Up: Patient is to return in one year for annual unless needed otherwise. Documented by Emperatriz Nagel MA on behalf of: PRISCILLA Henley documented in this encounter Plan of Treatment DateTypeDepartmentCare Team (Latest Contact Info)Vkzsffogpmh48/23/2025 11:00 AM ESTOffice Visit [facility] [address] [place] [address] Madyson Hinkle MD [address] [place] [address] 11/18/2025 9:30 AM ESTProcedure Visit [facility] [address] [place] [address] Rufus Etienne DO [address] [place] [address] 03/20/2026 10:00 AM EDTOffice Visit [facility] [address] [place] [address] Zandra Singh PA [address] [place] [address] NameTypePriorityAssociated DiagnosesOrder ScheduleTHIN PREP TIS PAP AND HR HPV DNAPathology and CytologyRoutine Well woman exam with routine gynecological exam Ordered: 10/27/2025documented as of this encounter Visit Diagnoses Diagnosis Well woman exam with routine gynecological exam Routine gynecological examination Breast cancer screening by mammogram documented in this encounter Care Teams Team MemberRelationshipSpecialtyStart DateEnd Date Madyson Hinkle MD [address] [place] [address] PCP - GeneralFamily Medicine04/12/23documented as of this encounter
--- OUTSIDE RECORDS SUMMARY | 2025-10-27 20:22 | XMS_ITS | Clinical Summary ---
Author Organization [facility] Address [facility] [id number] [address] [id number] Care Team Providers Care Farm Adviser Name Role Phone Unavailable Primary Care Provider Unavailabl e Social History Tobacco UseTypesPacks/DayYears UsedDateSmoking Tobacco: Never AssessedChildcare AnswerDate JvhmqgbdNmgxdfwcqJwhzuco33/11/2021EmploymentAnswerDate Recorded VrjuuqgeffXxzancq24/11/2021Purpose - LifeAnswerDate RecordedPurpose and direction in tmktKyoihmz00/11/2021CommentsUnknownSex and Gender InformationValueDate RecordedSex Assigned at BirthNot on fileLegal SexFemale 06/11/2015 12:08 PM EDTGender IdentityNot on fileSexual OrientationNot on file Plan of Treatment Not on file Medical Devices Not on file
--- OUTSIDE RECORDS SUMMARY | 2025-10-27 20:22 | XMS_ITS | Encounter Summary ---
Author Organization [facility] Address [address] [place] [address] Care Team Providers Care Clinical Data Coordinator Name Role Phone Madyson Hinkle MD Primary Care Provider [phone] Encounter Details DateTypeDepartmentCare Team (Latest Contact Info)Smyzlsemflc19/22/2025Travel Social History Tobacco UseTypesPacks/DayYears UsedDateSmoking Tobacco: FormerCigarettes0.510 [...] relatives?Once a week02/01/2024How often do you attend taoist or mosque services?More than 4 times per year4Do you belong to any clubs or organizations such as taoist groups, unions, fraternal or athletic groups, or school groups?Yes02/01/2024How often do you attend meetings of the clubs or organizations you belong to?More than 4 times per year02/01/2024re you , , , , never , or living with a partner? 02/01/2024UDIT-CAnswerDate RecordedQ1: How often do you have a drink containing alcohol?Monthly or less03/28/2024Q2: How many drinks containing alcohol do you have on a typical day when you are drinking?1 or Q3: How often do you have six or more drinks on one occasion?Never02/01/2024Overall Financial Resource Strain (CARDIA)AnswerDate RecordedHow hard is it for you to pay for the very basics like food, housing, medical care, and heating?Not hard at all 02/01/2024HQ-2AnswerDate RecordedPatient Health Questionnaire-2 Score0 03/07/2025Fin[facility] of Occupational Health - Occupational Stress QuestionnaireAnswerDate RecordedDo you feel stress - tense, restless, nervous, or anxious, or unable to sleep at night because yourmind is troubled all the time - these days?To some hfihbo9302/01/2024Exercise Vital SignAnswerDate Recorded On average, how many [...] steady place to sleep or slept in constantineelter (including now)?No02/01/2024EducationAnswer Date RecordedWhat is the highest level of school you have completed or the highest degree you have received?Some college, no ktisvs513 CommentsNoSex and Gender InformationValueDate RecordedSex Assigned at BirthNot on fileLegal EtyDwekde67/15/2023 6:45 PM EDTGender IdentityNot on fileSexual OrientationNot on filedocumented as of this encounter Plan of Treatment DateTypeDepartmentCare Team (Latest Contact Info)Quwzzzcdyht73/23/2025 11:00 AM ESTOffice Visit [facility] [address] [place] [address] Madyson Hinkle MD [address] [place] [address] 11/18/2025 9:30 AM ESTProcedure Visit [facility] [address] [place] [address] Rufus Etienne DO [address] [place] [address] 03/20/2026 10:00 AM EDTOffice Visit [facility] [address] [place] [address] Zandra Singh PA [address] [place] [address] documented as of this encounter Visit Diagnoses Not on filedocumented in this encounter Care Teams Team MemberRelationshipSpecialtyStart DateEnd Date Madyson Hinkle MD [address] [place] [address] PCP - GeneralFamily Medicine04/12/23documented as of this encounter
--- OUTSIDE RECORDS SUMMARY | 2025-10-27 20:22 | XMS_ITS | Encounter Summary ---
Author Organization [facility] Address [address] [place] [address] Care Team Providers Care Disaster Recovery Specialist Name Role Phone Madyson Hinkle MD Primary Care Provider [phone] Encounter Details DateTypeDepartmentCare Team (Latest Contact Info)Rgjoshdknnp72/22/2025amboo flowsheet [facility] [address] [place] [address] Ainsley Gonsalves PA [address] [place], [facility] Social History Tobacco UseTypesPacks/DayYears UsedDateSmoking Tobacco: FormerCigarettes0.510 [...] relatives?Once a week02/01/2024How often do you attend baptist or rastafarian services?More than 4 times per year02/01/2024o you belong to any clubs or organizations such as baptist groups, unions, fraternal or athletic groups, or [...] at all 02/01/2024HQ-2AnswerDate RecordedPatient Health Questionnaire-2 Score0 03/07/2025Fin[facility] [place] of Occupational Health - Occupational Stress QuestionnaireAnswerDate RecordedDo you feel stress - tense, restless, nervous, or anxious, or unable to sleep at night because yourmind is troubled all the time - these days?To some zutgrf3602/01/2024Exercise Vital SignAnswerDate Recorded On average, how many [...] highest degree you have received?Some college, no vcsqjt3404/20/2023 CommentsNoSex and Gender InformationValueDate RecordedSex Assigned at BirthNot on fileLegal DbhQchfmo22/15/2023 6:45 PM EDTGender IdentityNot on fileSexual OrientationNot on filedocumented as of this encounter Plan of Treatment DateTypeDepartmentCare Team (Latest Contact Info)Vfwkcilymxl16/23/2025 11:00 AM ESTOffice Visit [facility] [address] [place] [address] Madyson Hinkle MD [address] [place] [address] 11/18/2025 9:30 AM ESTProcedure Visit [facility] [address] [facility] [place] [address] Rufus Etienne DO [address] [place] [address] 03/20/2026 10:00 AM EDTOffice Visit [facility] [place] [facility] [address] [place] [address] Zandra Singh PA [address] [place] [address] documented as of this encounter Visit Diagnoses Not on filedocumented in this encounter Care Teams Team MemberRelationshipSpecialtyStart DateEnd Date Madyson Hinkle MD [address] [place] [address] [facility]04/12/23documented as of this encounter
--- OUTSIDE RECORDS SUMMARY | 2025-10-27 20:22 | XMS_ITS | Clinical Summary ---
Author Organization [facility] [place] [address] Care Team Providers Care Roofing Laborer Name Role Phone Madyson Hinkle MD Primary Care Provider [phone] Allergies Active AllergyReactionsCriticalityNoted DateCommentsAspirinOther (See Comments) 12/29/2011ee VenomOther (See Comments)12/19/2019Strawberry ExtractRash 01/29/2019 Medications MedicationSigDispense QuantityRefillsLast FilledStart DateEnd DateStatus omeprazole (PRILOSEC) 20 MG capsule TAKE 1 CAPSULE BY MOUTH EVERY DAY11/18/2019Active sertraline (ZOLOFT) 50 MG tablet Take 50 mg by mouth11/18/2019Active Vit-Fe Fumarate-FA (CLASSIC ) 28-0.8 MG TABS Take by mouth04/25/2015ctive Acetaminophen (TYLENOL) 325 MG CAPS 10/21/2019Active levothyroxine (SYNTHROID) 200 MCG tablet Take 200 mcg by mouth dailyActive Active Problems ProblemNoted DateDiagnosed DateObesity affecting in second trimester 01/08/2020Supervision of high-risk of elderly tkfftqtznlso12/16/2020 Overview (12/22/2019): Cf DNA negative, Level II anatomy on 12/19 recommended follow up in 2 weeks for completion of anatomy, declines any diagnostic testing GC consult with her medical consult on 12/19/19 Hypothyroidism affecting in second dhdzpdbxa44/16/2020Depression affecting ikkttglio45/16/2020 Overview (12/22/2019): Stable on Zoloft 50mg daily more anxiety [...] increased alcohol and tobacco use, deficits in mother-infant bonding, and disruptions within the family en vironment. All psychotropic medications studied to date cross [...] she continue this at this time. She mayneed to increase if her symptoms worsen. Hypothyroidism during /13/2020 Overview (12/22/2019): Adjustments this , most recent TSH 2.69 [...] taking Synthroid 200 mcg daily. I would re commend monitoring TSH every 4-6 weeks during the . The following trimester specific TSH ranges are recommended as per The [place] [employer] 1st, 2nd and 3rd: < 4.0 mIU/L. If adjustments are made to her thyroid medication during the , she would need to return to her pre- dose in the period and have her TSH checked approximately one month after delivery. Recommendations are also for serial growth throughout the . Migraine xwuumbqr35/13/2020 Resolved Problems ProblemNoted DateDiagnosed DateResolved QfwhQclockx28 Depressive hjikdiue68Gastroesophageal reflux eyvsjox3512/19/2019 12/22/2019 Family History Medical HistoryRelationCommentsCataractsFatherHigh Blood PressureFather HyperthyroidismFatherAsthmaMotherAutoimmune DiseaseMotherCancerMotherstage 3 Dx 2020EczemaMotherHigh Blood PressureMotherRelationStatusCommentsFatherMother Social History Tobacco UseTypesPacks/DayYears UsedDateSmoking Tobacco: FormerSmokeless Tobacco: NeverAlcohol UseStandard Drinks/WeekCommentsNot Currently0 (1 standard drink = 0.6 oz pure alcohol)CommentsNoSex and Gender InformationValueDate RecordedSex Assigned at BirthNot on fileLegal KvmKdrbzy92/13/2020 11:14 AM EST Gender IdentityNot on fileSexual OrientationNot on file Last Filed Vital Signs Vital SignReadingTime TakenCommentsBlood Xygbdgzi761/56012/19/2019 7:23 AM EST Pulse--Temperature--Respiratory Rate--Oxygen Saturation--Inhaled Oxygen Concentration--Cetdem61.6 kg (182 lb)12/19/2019 7:23 AM FWIDjojcg084.6 cm (5' 6 )12/19/2019 7:24 AM ESTBody Mass Index29.38012/19/2019 7:23 AM EST Plan of Treatment Health MaintenanceDue DateLast DoneCommentsMMR (1 of 1 - Standard series) 1983Varicella (1 of 2 - 13+ 2-dose series)1995MenB (1 of 2 - MenB 2- Dose Series Bexsero)1998Hepatitis A (1 of 2 - Risk 2-dose series) 2001HPV (1 - 3-dose SCDM series)2009Tetanus Diphtheria and Pertussis Vaccines (2 - Td or Tdap)COVID-19 ( - season) 2025FLU (#1)51, 08/06/2019Hepatitis BCompleted 02/27/2009, 09/29/2008, 09/01/2008HIBAged OutNo longer eligible based on patient's age to complete this topicMenACWYAged OutNo longer eligible based on patient's age to complete this topicNirsevimabAged OutNo longer eligible based on patient's age to complete this topicPneumococcalAged OutNo longer eligible based on patient's age to complete this topicPolioAged OutNo longer eligible based on patient's age to complete this topicRotavirusAged OutNo longer eligible based on patient's age to complete this topic Insurance Care Teams Team MemberRelationshipSpecialtyStart DateEnd Date Madyson Hinkle MD [address] [place] [address] [facility] - [facility]/19
--- OUTSIDE RECORDS SUMMARY | 2025-10-27 20:22 | XMS_ITS | Clinical Summary ---
Author Organization [facility] Address [address] [place] [id number] Care Team Providers Care Pit Clerk Name Role Phone Giorgi Landeros MD Primary Care Provider + [phone] Allergies Active AllergyReactionsCriticalityNoted XmlbBfjopnoyBtyzttkSklpafo27/23/2012ee VobqcAwwqlqyb60/26/0612YiqtvlaqnyPsxa46/26/2019 Medications MedicationSigDispense QuantityRefillsLast FilledStart DateEnd DateStatus levothyroxine (SYNTHROID) 137 mcg tablet 11/29/2017Active promethazine (PHENERGAN) 25 mg tablet TAKE 1 TABLET 4 TIMES A DAY NEEDED [id number] venlafaxine ER (EFFEXOR XR) 75 mg 24 hr capsule TAKE ONE CAPSULE EVERY DAY WITH MRXE635Active Active Problems ProblemNoted DateDiagnosed DateLung emaijec2212/05/2017 Family History Medical HistoryRelationCommentsCancerMaternal GrandmothercervicalCancerPaternal GrandfatherlungRelationStatusCommentsMaternal GrandmotherAlivePaternal GrandfatherAlive Social History Tobacco UseTypesPacks/DayYears UsedDateSmoking Tobacco: FormerCigarettes0.58.1 Started: 10/2017Smokeless Tobacco: Never Comments:quit 2 months ago Alcohol UseStandard Drinks/WeekCommentsNo0 (1 standard drink = 0.6 oz pure alcohol)Area Deprivation IndexAnswerDate RecordedNational Score (1-100), lower number is lower riskNot on file10/14/2020State Score (1-10), lower number is lower riskNot on file10/14/2020Data from: https://www.neighborhoodatlas.medicine.[facility].edu/. Last address used for calculationNot on file10/14/2020CommentsUnknownSex and Gender InformationValueDate RecordedSex Assigned at BirthNot on fileLegal SexFemale 10/07/2012 10:10 AM ESTGender IdentityNot on fileSexual OrientationNot on file Last Filed Vital Signs Vital SignReadingTime TakenCommentsBlood Bxktuijh040/8003 3:08 PM EDT Hksnr07881/26/2019 3:08 PM MULNvkfkjtspga63.5 ??C (97.7 ??F)01/29/2019 3:08 PM EDTRespiratory Gyhb774601/29/2019 3:08 PM EDTOxygen Nahslonrzl559%01/29/2019 3:08 PM EDTInhaled Oxygen Concentration--Ororaz03.8 kg (165 lb)01/29/2019 3:08 PM EDT Wmrikt515.6 cm (5' 6 )01/29/2019 3:08 PM EDTBody Mass Index26.63001/29/2019 3:08 PM EDT Plan of Treatment Health MaintenanceDue DateLast DoneCommentsAnxiety Onouapiag23/14/2000Depression Salzjuedu87/14/2000HIV Ndrexqyak40/14/2000Hepatitis C Twfmbfiic58/14/2000 Cervical Cancer Pcgjsrrnq24/14/2003HPV Vaccine (1 - 3-dose SCDM series) 2009Mammogram Clsvqzrln74/14/2022ovid-19 Vaccine ( season) 2025Influenza Vaccine (#1)DTaP,Tdap,Td Vaccine (2 - Td or Tdap)Hepatitis B SfwqgijYmwkruwpu10/24/2009, 09/29/2008, 09/01/2008 Care Teams Team MemberRelationshipSpecialtyStart DateEnd Date March, Giorgi Alonzo MD PCP - GeneralFamily Medicine06/08/11
--- OUTSIDE RECORDS SUMMARY | 2025-10-27 20:22 | XMS_ITS | Clinical Summary ---
Author Organization [facility] Address [address] [place] [address], [address] [place] [address] Care Team Providers Care Road Maker Name Role Phone Unavailable Primary Care Provider Unavailabl e Allergies Active AllergyReactionsCriticalityNoted FpzhJgxnrnwmJdrmjtb24/23/2012Penicillins 12/29/2011 Medications MedicationSigDispense QuantityRefillsLast FilledStart DateEnd DateStatus sertraline (ZOLOFT) 50 MG tablet Indications:Unspecified hypothyroidism,Goiter,Vitamin D deficiencyTake 50 mg by mouth daily.Active SYNTHROID 125 MCG tablet Indications:Unspecified hypothyroidism,Goiter,Vitamin D deficiencyTake 1 tablet by mouth daily. 30 tablet ctive Active Problems ProblemNoted DateDiagnosed KvahYzpreahpqyzywv40/23/1101Zkkqox40/23/2012 Social History Tobacco UseTypesPacks/DayYears UsedDateSmoking Tobacco: Never Assessed CommentsUnknownSex and Gender InformationValueDate RecordedSex Assigned at Not on fileLegal MqrUizgba51/12/2013 9:52 AM ESTGender IdentityNot on fileSexual OrientationNot on file Last Filed Vital Signs Vital SignReadingTime TakenCommentsBlood Pjcbmejc849/7004 9:41 AM EDT Eyuhg900403/01/2012 9:41 AM EDTTemperature--Respiratory Rate--Oxygen Saturation-- Inhaled Oxygen Concentration--Dojcgb83.2 kg (124 lb)03/01/2012 9:41 AM EDTHeight 167.6 cm (5' 6 )03/01/2012 9:41 AM EDTBody Mass Index20.0104 9:41 AM EDT Plan of Treatment Not on file
--- OUTSIDE RECORDS SUMMARY | 2025-10-27 20:22 | XMS_ITS | Clinical Summary ---
Author Organization [facility] Address [address] [place] [address] Care Team Providers Care Spot Checker Name Role Phone Madyson Hinkle MD Primary Care Provider [phone] Allergies Active AllergyReactionsCriticalityNoted ZnehHqlhdqheZprugfgMwmrx10/23/2012 Other Reaction(s): Hives, Unknown Other Reaction(s): Other (See Comments), Unknown Other Reaction(s): Other (See Comments) Bee Venom12/19/2019 Other Reaction(s): Other (See Comments) Aylett DlbgkznIeusSgw37/26/2019 Medications MedicationSigDispense QuantityRefillsLast FilledStart DateEnd DateStatus Levonorgestrel (Mirena, 52 MG,) 20 MCG/DAY intrauterine device Active venlafaxine XR (Effexor XR) 75 MG 24 hr capsule Indications:AnxietyTake 1 capsule (75 mg) by mouth Daily Do not crush or chew. 90 capsule 4Active tretinoin (Retin-A) 0.025 % cream Indications:Acne vulgarisApply pea size amount to the face, once every other night evening/night time, 30 day supply 45 g 5Active levothyroxine (Synthroid, Levoxyl) 125 MCG tablet Indications:Acquired hypothyroidismTAKE 1 TABLET BY MOUTH EVERY DAY 90 tablet 5Active azithromycin (Zithromax) 250 MG tablet Indications:COVIDTake 2 tabs PO x 1 day then 1 tab PO daily x 4 days 6 tablet Discontinued(Other) spironolactone (Aldactone) 100 MG tablet Indications:Acne vulgarisTake 1 tablet, by mouth, once daily, 30 days 30 tablet 110/5112/28/2024Discontinued(Other) Active Problems ProblemNoted DateDiagnosed DateScreening for metabolic gefrzbjn60/02/2025Lipid fyjvnkrhw57/02/2025Positive HARINDER (antinuclear antibody)03/07/2025ruising 03/07/20259597Rqsvrsh26/14/2023astroesophageal reflux ctmsfxx9204/19/2023Major depressive disorder, single episode, xojimjtutgu12/14/2023Seasonal allergies 04/19/2023Epstein Hartley virus yhyixhpga61/14/2023rumbling kkkensci11/14/2023 Obsessive idywoenq98/14/2023Other acne04/19/20230128Hspdwfsiosso78/14/2023Lung xtzextw0512/05/2017Acquired rbuvpbxknlhfnp70/23/2012 Resolved Problems ProblemNoted DateDiagnosed DateResolved DateDepressive gkwerwqc13/14/2023 10/22/2024 Encounters DateTypeDepartmentCare JumvIfuzexxzyqc44/22/2025 2:00 PM ESTProcedure Visit [facility] [address] [facility] [place] [address] Ainsley Gonsalves PA Well woman exam with routine gynecological exam; Breast cancer screening by qhtsibnqc27/22/9989Hnthev72/22/2025amboo flowsheet [facility] [address] [place] [address] Ainsley Gonsalves PA 09/10/2025Telephone [facility] [address] [facility] [place] [address] Ainsley Gonsalves PA from Last 3 Months Immunizations ImmunizationAdministration DatesNext DueHep B, adult02/27/2009,09/29/2008, 09/01/2008Influenza, live, ihizldwngx19/07/2019Influenza, seasonal, injectable, preservative free08/06/2019Moderna SARS-CoV-2 Hkblkmkdkbv71/10/2022,08/27/2021 Tdap02/25/2020,09/29/2015 Family History Medical HistoryRelationNameCommentsCataractsFatherDavid RiffleHypertensionFather Hans RiffleHypothyroidismFatherDavid RifflehypoglycemiaFatherDavid RiffleBreast cancerMaternal GrandmotherCervical cancerMaternal GrandmotherEczemaMother Gilda RiffleHypertensionMotherJacqueline RiffleLupusMotherJacqueline Adam Ovarian cancerMotherJacqueline RiffleTuberculosisMotherJacqueline Adam malignant neoplasmMotherJacqueline Rifflefemale genitalBreast cancerMother's SisterLung cancerPaternal GrandfatherMelanomaNeg HxRelationNameStatusComments Asqoaoi8Iewfbsvu6TvqgvjMyldz RiffleAliveMaternal GrandmotherMotherJacqueline RiffleAliveMother's SisterPaternal GrandfatherSon1 Social History Tobacco UseTypesPacks/DayYears UsedDateSmoking Tobacco: FormerCigarettes0.510 11/06/2004 - 11/06/2014Smokeless Tobacco: Never Tobacco Cessation:Counseling Given: Not Answered Alcohol UseStandard Drinks/WeekCommentsNot Currently0 (1 standard drink = 0.6 oz pure alcohol)Caffeine intake: sodaSocial Connection and Isolation PanelAnswer Date RecordedIn a typical week, how many times do you talk on the phone with family, friends, or neighbors?More than three times a week02/01/2024How often do you get together with friends or relatives?Once a week02/01/2024How often do you attend adventism or anabaptist services?More than 4 times per year4Do you belong to any clubs or organizations such as adventism groups, unions, fraternal or athletic groups, or school groups?Yes02/01/2024How often do you attend meetings of the clubs or organizations you belong to?More than 4 times per year02/01/2024 Are you , , , , never , or living with a partner?Yckurkr39/28/2024AUDIT-CAnswerDate RecordedQ1: How often do you have a [...] housing, medical care, and heating?Not hard at all02/01/2024HQ-2AnswerDate RecordedPatient Health Questionnaire-2 Score0 03/07/2025[facility] [place] [facility] - Occupational Stress QuestionnaireAnswerDate RecordedDo you feel stress - tense, restless, nervous, or anxious, or unable to sleep at night because yourmind is troubled all the time - these days?To some smfjmi9602/01/2024Exercise Vital SignAnswerDate Recorded On average, how many [...] steady place to sleep or slept in [facility] (including now)?No02/01/2024EducationAnswer Date RecordedWhat is the highest level of school you have completed or the highest degree you have received?Some college, no CommentsNoSex and Gender InformationValueDate RecordedSex Assigned at BirthNot on fileLegal BafJicaus15/15/2023 6:45 PM EDTGender IdentityNot on fileSexual OrientationNot on file Last Filed Vital Signs Vital SignReadingTime TakenCommentsBlood Kwdovzla994/7010/27/2025 1:52 PM EST Nxwbo683603/07/2025 8:16 AM IRUCgjzppdylpc83.9 ??C (98.4 ??F)03/07/2025 8:16 AM EDTRespiratory Rate--Oxygen Yzwimpyywg02%03/07/2025 8:16 AM EDTInhaled Oxygen Concentration--Blxmlf80.5 kg (181 lb 12.8 oz)10/27/2025 1:52 PM RIMFrurrj633.6 cm (5' 6 )03/07/2025 8:16 AM EDTBody Mass Index29.34003/07/2025 8:16 AM EDT Plan of Treatment DateTypeDepartmentCare Team (Latest Contact Info)Rxfjlwtbuiz84/23/2025 11:00 AM ESTOffice Visit [facility] [address] [place] [phone] Madyson Hinkle MD [address] [place] [address] 11/18/2025 9:30 AM ESTProcedure Visit [facility] [address] [facility] [place] [address] Rufus Etienne DO [address] [facility] [place] [address] 03/20/2026 10:00 AM EDTOffice Visit [facility] [address] [place] [address] Zandra Singh PA [address] [place] [phone] Health MaintenanceDue DateLast DoneCommentsInfluenza Vaccine (#1)07/07/2025 10/05/2024, 08/12/2019, 08/06/20196964Jwepiudak15/25/272506/, 07/28/2023 Cervical Cancer Psdslrljo38/11/2029HPV/Ydmksy5207/17/2029Pap Smear07/17/2029 07/17/2024, 02/17/2023neumococcal Vaccine: Pediatrics (0 to 5 Years) and At- Risk Patients (6 to 64 Years)Aged OutNo longer eligible based on patient's age to complete this topic Procedures Procedure NamePriorityDate/TimeAssociated DiagnosisCommentsMM TOMOSYNTHESIS SCREENING BI07/31/2024 3:57 PM EDT PAP XLMXURtwoxol52/11/2024 12:00 AM EDTfrom Last 3 Months or Most Recently Relevant to Health Maintenance Results * MM TOMOSYNTHESIS SCREENING BI (07/31/2024 3:57 PM EDT)Anatomical Region LateralityModalityOtherSpecimen (Source)Anatomical Location / Laterality Collection Method / VolumeCollection TimeReceived Time07/31/2024 3:57 PM EDT Narrative 07/31/2024 3:59 PM EDT [facility] ?[address] ? [place] [address] ? Mammography Report ? Signed ? Patient: SRINATH,LUIS MANUEL E ?MR#: [id number] ?? : 1980 ?Acct:[id number] ?? Age/Sex: 44 / F ?ADM Date: /25/24 ?? Loc: MAMMO ? Attending Dr: Ainsley Gonsalves ? Ordering Physician: Ainsley Gonsalves ?Results: ? Date of Service: /25/24 ?Follow Up: ? Procedure(s): MM tomosynthesis screening BI ?? Accession Number(s): [id number] ? cc: Ainsley Gonsalves; DEMI HINKLE ? Patient Name: ? LUIS MANUEL YO ? MR#: [id number] ? : 1980 ? Exam Date: 07/31/2024 ?? Ordering Doctor: PRISCILLA Gonsalves . ? RADIOLOGY REPORT ? PROCEDURE: ? MM TOMOSYNTHESIS SCREENING BI ? COMPARISON: ? MM TOMOSYNTHESIS SCREENING BI, 07/27/2023. ??MG MAMM SCREEN 3D ?? CEDRICK CAD, 07/21/2022. ? INDICATIONS: ? Screening ? Calculator Name ? NCI Breast Cancer Risk Assessment Tool ?? 5 Year Breast Cancer Risk ? 0.70% ?? Lifetime Breast Cancer Risk ? 10.00% ?? Personal Breast Cancer ?No ?? Personal Ovarian Cancer ? No ?? Treatments ? None ?? Family Cancers ? Grandmother-maternal with breast cancer at age ??65; ?? Aunt-paternal with breast cancer at age ??55; Mother with ovarian cancer at ?? age 56; Grandmother-maternal with cervical cancer at age ??40; ?? Grandfather-paternal with lung cancer at age ??72. ? LOCATION: ? [facility] ? BREAST COMPOSITION: ? There are scattered areas of fibroglandular density. ? FINDINGS: ? DIAGNOSTIC CATEGORY 2--BENIGN FINDING: ? RIGHT BREAST: ??No significant suspicious finding. ??Scattered benign-appearing ?? lymph nodes are present. ??No significant change has occurred. ? LEFT BREAST: ??No significant suspicious finding. ??No significant change has ?? occurred. ? RECOMMENDATIONS: ? ROUTINE MAMMOGRAM AND CLINICAL EVALUATION IN 12 MONTHS. ? PLEASE NOTE: ??A NORMAL MAMMOGRAM DOES NOT EXCLUDE THE POSSIBILITY OF BREAST ?? CANCER. ??A CLINICALLY SUSPICIOUS PALPABLE LUMP SHOULD BE BIOPSIED. ? Dictated by: Cecil Pike M.D. on 07/31/2024 at 15:54 ? Approved by: Cecil Pike M.D. on 07/31/2024 at 15:57 ? Dictated By: ?Cecil Pike M.D. ? Signed By: ?07/31/249 ? DD/ 1557 ? TD/TT: ? Line Leader: Procedure Note Radiology, Radiologist, MD - 07/31/2024 [place] [address] Mammography Report Signed Patient: LUIS MANUEL YO EMR#: [id number] : 1980Acct:[id number] Age/Sex: 44 / FADM Date: 07/31/24 Loc: MAMMO Attending Dr: Ainsley Gonsalves Ordering Physician: Ainsley GonsalvesResults: Date of Service: 07/31/24Follow Up: Procedure(s): MM tomosynthesis screening BI Accession Number(s): [id number] cc: Ainsley Gonsalves; DEMI HINKLE Patient Name: LUIS MANUEL YO MR#: [id number] : 1980 Exam Date: 07/31/2024 Ordering Doctor: PRISCILLA Gonsalves . RADIOLOGY REPORT PROCEDURE: MM TOMOSYNTHESIS SCREENING BI COMPARISON: MM TOMOSYNTHESIS SCREENING BI, 07/27/2023. MG MAMM UXJIMY8P CEDRICK CAD, 07/21/2022. INDICATIONS: Screening Calculator Name NCI Breast Cancer Risk Assessment Tool 5 Year Breast Cancer Risk 0.70% Lifetime Breast Cancer Risk 10.00% Personal Breast Cancer No Personal Ovarian Cancer No Treatments None Family Cancers Grandmother-maternal with breast cancer at age 65; Aunt-paternal with breast cancer at age 55; Mother with ovarian cancer at age 56; Grandmother-maternal with cervical cancer at age 40; Grandfather-paternal with lung cancer at age 72. LOCATION: [facility] BREAST COMPOSITION: There are scattered areas of fibroglandulardensity. FINDINGS: DIAGNOSTIC CATEGORY 2--BENIGN FINDING: RIGHT BREAST: No significant suspicious finding. Scatteredbenign-appearing lymph nodes are present. No significant change has occurred. LEFT BREAST: No significant suspicious finding. No significant changehas occurred. RECOMMENDATIONS: ROUTINE MAMMOGRAM AND CLINICAL EVALUATION IN 12 MONTHS. PLEASE NOTE: A NORMAL MAMMOGRAM DOES NOT EXCLUDE THE POSSIBILITY OFBREAST CANCER. A CLINICALLY SUSPICIOUS PALPABLE LUMP SHOULD BE BIOPSIED. Dictated by: Cecil Pike M.D. on 07/31/2024 at 15:54 Approved by: Cecil Pike M.D. on 07/31/2024 at 15:57 Dictated By: Cecil Pike M.D. Signed By:07/31/24 1559 DD/ 1557 TD/TT: Line Leader: Authorizing ProviderResult TypeResult StatusAmy Major PACLINISYNC IMAGINGFinal Result * Pap Smear (07/17/2024 12:00 AM EDT)Specimen (Source)Anatomical Location / LateralityCollection Method / VolumeCollection TimeReceived TimeSwabCervical swab / Unknown Narrative Authorizing ProviderResult TypeResult StatusAmy Fults [facility]TOLOG[facility] ORDERABLES Final ResultPerforming OrganizationAddressCity/State/ZIP CodePhone Number EXTERNAL LAB from Last 3 Months or Most Recently Relevant to Health Maintenance Insurance Care Teams Team MemberRelationshipSpecialtyStart DateEnd Madyson Hinkle MD [address] [place] [address] [facility]
--- OUTSIDE RECORDS SUMMARY | 2025-10-27 20:22 | XMS_ITS | Patient Health Record ---
Author Organization [facility] [place] Address [address] [place] [address] Care Team Providers Care Bolt Sawyer Name Role Phone Madyson Hinkle MD Primary Care Provider Unavaila ble Reason For Referral No Information Plan Of Treatment No Information Insurance Providers Payer Name Payer Address Payer Phone Subscriber Number Group Number Insured Name Patient Relationship to Insured Coverage Start Date Coverage End Date BCBS OUT OF STATE [address] [place] [address] [id number] Di Wagner - patient is the insured
== END 2025-10-27 20:18 | disposition home or self-care (01) ==
LOC: LAB 20:17
PROVIDERS: PCP Student in an Organized Health Care Education/Training Program; Visit Provider Physician Assistant
DX: Z01.419 Encounter for gynecological examination (general) (routine) without abnormal findings (principal)
CPT/HCPCS: 88175